=== PATIENT | female | born 1940 ===

== ENCOUNTER → 2019-04-04 | Outpatient (CLI) | payer MEDICARE ==
--- NOTE | 2019-04-04 18:33 | MR ---
EXAMINATION TYPE: MR tspine/lspine wo/w con DATE OF EXAM: 04/04/2019 COMPARISON: HISTORY: Mid/lower back pain with radiculopathy CONTRAST: Performed utilizing 7 mL intravenous Gadavist gadolinium contrast. TECHNIQUE: Multiplanar, multiecho imaging on a 3.0 Annie magnet is performed through the thoracic spi ne. Note is made of some disc bulging C6-7. This comes in close approximation with the spinal cord. This is not evaluated in the axial plane. Spinal cord maintains normal signal through its visualized course. Vertebral body alignment is normal. Vertebral body heights are preserved. Disc heights are preserved. Some mild disc desiccation is present throughout the thoracic spine. T12-L1: There is mild disc bulging with mild anterior thecal sac impression. No apical spinal canal s tenosis or neural foraminal stenosis present. No abnormal enhancement are evident. IMPRESSIONS: 1. Disc bulging T12-L1 with mild anterior thecal sac compression. 2. Incidental note is made of disc bulging C7-T1 in the sagittal plane images. EXAMINATION TYPE: MR tspine/lspine wo/w con DATE OF EXAM: 04/04/2019 COMPARISON: HISTORY: Mid/lower back pain with radiculopathy CONTRAST: 7 mL intravenous Gadavist. TECHNIQUE: Multiplanar, multisequence images of the lumbar spine were acquired. FINDINGS: L5-S1: Mild disc bulge is present. No significant thecal sac compression is evident. Facet hypertroph y is present, no spinal canal stenosis is present. Moderate facet hypertrophy and severe bilateral fo raminal narrowing is present. L4-L5: There is a grade 1 spondylolisthesis L4 anterior on L5. Disc uncovering is present. No AP spin al canal stenosis present. Facet hypertrophy is present with some posterior lateral thecal sac contac t. Mild lateral canal narrowing should be considered. Correlate with right L5 radicular symptoms at t he lateral recess. There is severe right foraminal stenosis. Mild left foraminal narrowing is present L3-L4: There is a grade 1 spondylolisthesis with disc uncovering. No spinal canal stenosis present. F acet hypertrophy is present with some posterior lateral thecal sac compression. Neural foramen are pa tent. L2-L3: No significant disc bulge or disc herniation. No spinal canal stenosis. No foraminal stenosi s. Facet hypertrophy is present. L1-L2: No significant disc bulge or disc herniation. No spinal canal stenosis. No foraminal stenosi s. T12-L1: No significant disc bulge or disc herniation. No spinal canal stenosis. No foraminal stenos is. No abnormal enhancement. IMPRESSION: 1. Spondylolisthesis of L4 on L5 and L3 on L4. 2. Severe right foraminal stenosis due to facet hypertrophy and disc uncovering at L4-5. Right latera l recess narrowing is present. 3. Severe bilateral foraminal narrowing due to facet hypertrophy at L5-S1 is present.
== END | disposition home or self-care (01) ==
LOC: RADMRIMAIN 14:20
PROVIDERS: ATTEND Psychiatry & Neurology Neurology
DX: M48.061 Spinal stenosis, lumbar region without neurogenic claudication (principal); M51.25 Other intervertebral disc displacement, thoracolumbar region; M46.97 Unspecified inflammatory spondylopathy, lumbosacral region; M43.16 Spondylolisthesis, lumbar region; M54.12 Radiculopathy, cervical region; G95.29 Other cord compression
CPT/HCPCS: 72157; 72158; A9585

== ENCOUNTER 2020-05-07 20:57 | Inpatient (IN) | payer MEDICARE ==
[2020-05-07] MEDS ORDERED: LIDOCAINE 1% INJ 10MG/ML (20 ML MDV) ONE (21:13)
[2020-05-07] MEDS ORDERED: fentaNYL (PF) 50 MCG/ML 2 ML AMP ONE (21:54)
[2020-05-07] MEDS ORDERED: LIDOCAINE 1% INJ 10MG/ML (20 ML MDV) SQ ONE (22:10)
[2020-05-07] MEDS ORDERED: MIDAZOLAM 2 MG/2 ML VIAL IV ONE (22:10)
[2020-05-07] MEDS ORDERED: fentaNYL (PF) 50 MCG/ML 2 ML AMP IV ONE (22:10)
[2020-05-07] MEDS ORDERED: IV FLUID CONTINUATION 450 ML IV ONE (22:14)
[2020-05-07] MEDS ORDERED: TICAGRELOR 90 MG TAB ONE (22:23)
[2020-05-07] MEDS ORDERED: HEPARIN SODIUM 1,000 UN/ML (10ML VL) ONE (22:23)
[2020-05-07] MEDS: HEPARIN SODIUM 1,000 UN/ML (10ML VL) IV ONE ×2 (22:25→22:35)
[2020-05-07] MEDS ORDERED: TICAGRELOR 90 MG TAB PO ONE (22:26)
[2020-05-07] MEDS ORDERED: IOPAMIDOL-370 125ML BTL INJ ONE (22:32)
--- NOTE | 2020-05-07 22:39 | P.CARDCATH ---
Date of Procedure: 05/07/20 Preoperative Diagnosis: Unstable angina/non-STEMI Postoperative Diagnosis: Critical lesion involving the proximal RCA. Multiple lesions in the LAD Procedure(s) Performed: Left heart catheterization without left ventriculography Description of Procedure: HISTORY: This is a 79-year-old female with history of hypertension and hyperlipidemia who was admitted to [facility] with intermittent Pain and chest pain and positive troponins. In view of ongoing chest pain. Patient is advised to have cardiac catheterization. Patient and family were explained the risks and benefits of the procedure CONSENT:I have discussed the risks, benefits and alternative therapies for the above-mentioned procedure and for both sedation/analgesia as well as necessary blood product administration, if indicated, as they pertain to this patient. The patient has indicated understanding and acceptance of the risks and procedures discussed. PROCEDURE: Patient was brought to the lab in a fasting state. Patient was given some IV sedation. The right groin is infiltrated with lidocaine and right femoral artery was entered using Seldinger technique. A 6-[place]ank[place] catheter was left in place and selective coronary arteriography was performed. Patient tolerated the procedure well. No immediate complications were noted and patient went on to have stent placement of the RCA by Dr. Parker Conscious Sedation: Versed 1mg Fentanyl 25 g Duration 15minutes HEMODYNAMICS: The aortic pressure is about 165/90. The left ventricle end- diastolic pressure was not measured SELECTIVE CORONARY ARTERIOGRAPHY: LEFT MAIN: Normal length and patent THE LEFT ANTERIOR DESCENDING CORONARY ARTERY:. This is a good caliber vessel with a diffuse disease involving the proximal to mid segments with multiple areas of 80% stenosis. There is a lesion and proximally and also in the midportion of 80%. There is involvement of the first diagonal ostium and also septal branch ostium THE LEFT CIRCUMFLEX AND IS CORONARY ARTERY: Good caliber vessel and codominant seemed to be free of any significant occlusive disease THE RIGHT CORONARY ARTERY:. Moderate caliber vessel with about 95-99% stenosis proximally LEFT VENTRICULOGRAPHY: Not performed FINAL IMPRESSION:. Significant coronary artery disease with critical lesions involving the proximal RCA and multiple lesions involving the proximal to mid LAD PLAN: Stent placement of the RCA. Stasis stent placement of the LAD PROGNOSIS: Guarded
[2020-05-07] MEDS ORDERED: IOPAMIDOL-370 100ML BTL INJ ONE (22:47)
[2020-05-07] MEDS ORDERED: MAG HYDROX/AL HYDROX/SIMETH 30 ML CUP PO PRN (22:56)
[2020-05-07] MEDS ORDERED: ZOLPIDEM 5 MG TAB PO PRN (22:56)
[2020-05-07] MEDS ORDERED: NITROGLYCERIN SL TABS 0.4 MG TAB SUBLINGUAL PRN (22:56)
[2020-05-07] MEDS ORDERED: ATROPINE SULFATE 0.1 MG/ML 10ML SYRINGE IV PRN (22:56)
[2020-05-07] MEDS ORDERED: RX INFO: IV CONTRAST WAS GIVEN 1 EACH MISC MISCELLANE PRN (22:56)
--- NOTE | 2020-05-07 22:56 | P.PRCINT ---
Percutaneous Coronary Int. - Percutaneous Coronary Intervention Percutaneous Coronary Intervention: PROCEDURES PERFORMED: Selective right coronary angiography, successful PCI of proximal RCA with a 2.25 x 15 mm Xience MARK, postdilated with a 2.5 mm noncompliant balloon. INDICATION: Non-STEMI HISTORY: Patient is a pleasant 79-year-old female with history of hypertension and breast cancer who presented with jaw pain to [facility]. She was found to have non-STEMI with persistent chest pain and therefore was brought urgently to the [facility]. Patient had a diagnostic catheterization performed by my partner and I was asked to evaluate for possible PCI. PROCEDURE: After the risks, benefits and alternatives of the above mentioned procedure explained in detail with the patient, informed consent was obtained. The decision was made to intervene on the RCA. A 6Fr sheath had been placed in the right femoral artery using modified Seldinger technique. A 6Fr AL1.0 guide catheter was used to engage the RCA. A 0.014 BMW wire was advanced into the distal vessel without difficulty. The lesion was predilated with a 2.0 x 12 mm balloon. Next, a 2.25 x 15 mm Xience MARK was deployed. The stent was then post dilated with a 2.5 x 12 mm NC balloon. Preintervention there was a 90 % stenosis and BARBARA 3 flow and post intervention there was 0 % residual stenosis and BARBARA 3 flow without evidence of dissection. The wire was removed and final angiograms were taken. A right femoral angiogram was performed which showed inadequate anatomy for closure. The sheath was sutured in place for removal at a later time. The patient tolerated the procedure well. Patient was transported back to the post catheterization holding area in stable condition. Conscious Sedation: Patient was monitored under the direct supervision of vision of myself for conscious sedation using Versed and fentanyl for a total duration of 26 minutes HEMODYNAMICS: 152/82 SELECTIVE CORONARY ARTERIOGRAPHY: LEFT MAIN: Not imaged, see diagnostic report LEFT ANTERIOR DESCENDING CORONARY ARTERY: Not imaged, see diagnostic report LEFT CIRCUMFLEX CORONARY ARTERY: Not imaged, see diagnostic report RIGHT CORONARY ARTERY: The right coronary artery is a small to moderate caliber vessel which is co-dominant vessel. There is a proximal 90% RCA stenosis. FINAL IMPRESSION: 1. Coronary artery disease as described above with successful PCI of the proximal RCA with a 2.25 x 15 mm Xience MARK, postdilated with a 2.5 mm noncompliant balloon. 2. Residual LAD and diagonal disease as described in diagnostic catheterization report. 3. Non-STEMI PLAN: 1. Aggressive risk factor modification per most recent ACC/AHA guidelines. 2. Consider staging of LAD lesion. 3. Continue dual antiplatelets for 12 months.
[2020-05-07 23:18] LABS: Glucose,Whole Blood 102 mg/dL (75-99)
[2020-05-07] MEDS: SODIUM CHLORIDE 0.9% 1,000 ML IV SCH (23:54)
[2020-05-08] MEDS ORDERED: ALPRAZolam 0.25 MG TAB PO PRN (02:55)
[2020-05-08] MEDS: ASPIRIN 81 MG PO SCH (08:58)
[2020-05-08] MEDS: LOSARTAN 50 MG TAB PO SCH (08:58)
[2020-05-08] MEDS: ATORVASTATIN 40 MG TAB PO SCH ×2 (08:58→09:00)
[2020-05-08] MEDS ORDERED: METOPROLOL TARTRATE 25 MG TAB PO SCH (09:00)
--- NOTE | 2020-05-08 09:47 | P.HPIM ---
History of Present Illness H&P Date: 05/08/20 Chief Complaint: Acute non-ST [place], post PCI and stent of the RCA, hypertension, hyperlipidemi 79-year-old female with past medical history of hypertension and hyperlipidemia who is survival of bilateral breast cancer post lumpectomy radiation and chemotherapy who has been doing well developed to have midsternal chest pain started midday yesterday was associated with significant shortness of breath nausea mild palpitation cold sweat her pain radiated to her jaw and left arm symptoms become a lot worse with exertion. Patient was not able to complete her tasks at noontime been able to do much with her house chore her end up taking her to the emergency department at [facility] where was seen and evaluated was diagnosed with non-ST FL with elevated troponin and slightly abnormal EKG. Patient was seen cardiology and ended up being transferred to the quality control lab technician at [facility] were end up performing emergency heart catheter which showed significant stenosis of the right coronary artery and mild stenosis of the LAD. Patient ended up having an intervention with angioplasty and stent placement of the right coronary artery successful. Patient was stabilized hemodynamically and transferred to the intensive care unit afterward no bleeding from the groin area no further chest pain or more angina. Review of Systems CONSTITUTIONAL: Well-developed no acute respiratory distress. EYES: No icterus sclerae, no conjunctivitis. EARS, NOSE, MOUTH, THROAT, and FACE: No sore throat, lymphadenopathy, carotid bruits or deformity. RESPIRATORY: Mild shortness of breath and chest pain. CARDIOVASCULAR: Positive chest pain with angina and mild orthopnea. GASTROINTESTINAL: No Abd pain, Nausea or vomiting, no Diarrhea or constipation, No GI Bleed, no distention or masses. GENITOURINARY: Negative for Hematuria or UTI, no kidney stones. INTEGUMENT/BREAST: Negative for any muscular injury with mild osteoarthritis.. HEMATOLOGIC/LYMPHATIC: Negative for bleed or purpura. MUSCULOSKELTAL: Negative for Myalgia or arthralgia. NEURLOGICAL: No LOC, Sz or syncope, blurred vision dizziness or abnormality.. BEHAVIORAL/PSYCH: Negative. ENDOCRINE: Negative. Social history: Patient does not smoke, no alcohol abuse, she is retired live with her no use of oxygen CPAP or any updraft treatment at home. Family history: Patient had 2 children both are living and well, she had 3 siblings with no major medical problem. Her father age 62 from [place], mother age 75 from stomach cancer. Medications and Allergies Home Medications Medication Instructions Recorded Confirmed Type Labetalol [Trandate] 50 mg PO HS 05/07/20 05/07/20 History Labetalol [Trandate] 100 mg PO DAILY 05/07/20 05/07/20 History Olmesartan [Benicar] 20 mg PO DAILY 05/07/20 05/07/20 History Potassium Chloride 10 meq PO DAILY 05/07/20 05/07/20 History amLODIPine [Norvasc] 5 mg PO HS 05/07/20 05/07/20 History hydroCHLOROthiazide [Hydrodiuril] 25 mg PO DAILY 05/07/20 05/07/20 History Allergies Allergy/AdvReac Type Severity Reaction Status Date / Time meperidine [From Demerol] Allergy Unknown Unknown Verified 05/07/20 23:30 morphine Allergy Unknown Unknown Verified 05/07/20 23:30 Physical Exam Vitals: Vital Signs Temp Pulse Resp BP Pulse Ox 05/08/20 09:00 69 15 147/92 96 05/08/20 08:00 97.8 F 64 18 151/83 97 05/08/20 07:00 78 13 135/89 97 05/08/20 06:30 72 10 L 135/89 05/08/20 06:00 73 16 141/84 05/08/20 05:30 68 14 140/76 05/08/20 05:00 73 22 141/94 98 05/08/20 04:30 70 11 L 157/79 05/08/20 04:00 97.6 F 74 18 156/70 05/08/20 03:40 71 18 156/70 05/08/20 03:30 77 12 05/08/20 03:20 73 22 05/08/20 03:10 80 10 L 05/08/20 03:00 92 26 H 165/95 05/08/20 02:50 79 17 97 05/08/20 02:40 71 12 96 05/08/20 02:30 74 10 L 170/87 05/08/20 02:20 77 16 170/87 95 05/08/20 02:10 78 17 170/87 96 05/08/20 02:00 71 18 163/93 97 05/08/20 01:50 69 10 L 163/93 98 05/08/20 01:40 82 17 163/93 96 05/08/20 01:30 70 8 L 153/89 96 05/08/20 01:20 73 12 153/89 96 05/08/20 01:10 72 13 153/89 98 05/08/20 01:00 72 12 144/87 97 05/08/20 00:50 68 11 L 144/87 97 05/08/20 00:40 71 12 144/87 96 05/08/20 00:30 64 12 152/85 96 05/08/20 00:20 71 11 L 152/85 96 05/08/20 00:19 76 20 152/85 95 05/08/20 00:10 72 5 L 152/85 93 L 05/08/20 00:00 98.2 F 70 13 167/95 93 L 05/07/20 23:50 70 13 167/95 94 L 05/07/20 23:40 76 12 167/95 93 L 05/07/20 23:30 70 15 154/90 94 L 05/07/20 23:20 73 14 154/90 96 05/07/20 23:15 71 11 L Intake and Output 05/07/20 05/08/20 05/08/20 22:59 06:59 14:59 Intake Total 100 625 325 Output Total 1150 400 Balance 100 -525 -75 Intake: IV 100 525 225 Sodium Chloride 0.9% 1, 525 225 000 ml @ 75 mls/hr IV . [id number] [facility] Rx#:[id number] Oral 100 100 Output: Urine 1150 400 Other: # Voids 0 1 Weight 70.632 kg 75.7 kg ABP, PAP, CO, CI - Last 8 Hours Arterial Blood Pressure 186/87 Arterial Blood Pressure 173/79 Arterial Blood Pressure 175/83 Arterial Blood Pressure 166/73 Arterial Blood Pressure 170/76 Arterial Blood Pressure 179/83 Arterial Blood Pressure 189/89 Arterial Blood Pressure 192/88 Arterial Blood Pressure 203/97 Arterial Blood Pressure 196/88 Arterial Blood Pressure 209/99 Arterial Blood Pressure 199/88 Arterial Blood Pressure 203/95 Arterial Blood Pressure 203/94 Arterial Blood Pressure 205/93 Arterial Blood Pressure 199/94 Arterial Blood Pressure 188/85 Arterial Blood Pressure 202/94 General Appearance: Alert, cooperative, no distress, appears stated age. Neck HEENT: Supple, no lymphadenopathy, no thyroid enlargement, no carotid bruits. Lungs: Clear to auscultation without crackles or wheezes no rhonchi, no deformity. Chest Wall: Chest wall normal expansion with deep inspiration no tenderness and no deformity was found on exam, no costochondral pain or discomfort. Heart: Regular rate and rhythm, S1, S2 normal, no murmur, rub or gallop. Back: Symmetric, no curvature, ROM normal, no CVA tenderness. Abdomen: Soft, non-tender, bowel sounds active all four quadrants, no masses, no organomegaly. Right groin no sign of bleeding from the catheter site. Extremities: Extremities normal, atraumatic, no cyanosis or edema. Pulses: 2+ and symmetric. Skin: Skin color, texture, tugor normal, no rashes or lesions. Neurologic: Alert oriented x3 cranial nerves II through XII intact, no motor deficit, no abnormal balance or gait. Results Labs: Abnormal Lab Results - Last 24 Hours (Table) 05/07/20 Range/Units 23:17 POC Glucose (mg/dL) 102 H (75-99) mg/dL Thrombosis Risk Factor Assmnt - DVT/VTE Prophylaxis DVT/VTE Prophylaxis: Pharmacologic Prophylaxis ordered, Mechanical Prophylaxis ordered Assessment and Plan Assessment: 1 non-ST [place]: Patient ended up going for intervention with angioplasty and stent placement of the right coronary artery, will be started on higher dose of statin, beta rigoberto, COLUMBA inhibitor and Brilinta. 2 post PCI and stent placement of the right coronary artery: Patient is doing well continue current management seen cardiology still been watch hemodynamically. 3 emergency hypertension: Blood pressure still quite bit elevated continue patient on Lopressor 25 mg twice a day along with Cozaar 50 mg daily titrate the dose and add calcium channel rigoberto patient was in much higher beta rigoberto at home with labetalol 100 mg in the morning 50 at nighttime beta rigoberto can be titrated try to keep her systolic blood pressure below 140. 4 hyperlipidemia: Was started on higher dose of atorvastatin at 40 mg daily. 5 hyperglycemia: Accu-Chek with sliding scales coverage and be done. 6 severe GERD: Was on Pepcid 20 mg daily patient will be on pantoprazole at this point. 7 history of bilateral breast cancer: Has been doing well and in full remission. 8 GI prophylaxis: Patient will be on pantoprazole. 9 DVT prophylaxis: Early mobilization and knee-high ANNEL hose. CODE STATUS: Full code. Admit patient to inpatient service for more than 2 night stay.
--- NOTE | 2020-05-08 10:13 | ECHOF ---
Referral Reason:mi MEASUREMENTS -------- HEIGHT: 152.4 cm WEIGHT: 75.3 kg BP: RVIDd: 3.2 cm (< 3.3) IVSd: 1.4 cm (0.6 - 1.1) LVIDd: 4.4 cm (3.9 - 5.3) LVPWd: 1.3 cm (0.6 - 1.1) IVSs: 1.9 cm LVIDs: 3.5 cm LVPWs: 1.2 cm LAESV Index (A-L): 26.18 ml/m MV EXCURSION: 13.189 mm (> 18.000) MV EF SLOPE: 30 mm/s (70 - 150) EPSS: 1.4 cm MV E Kade: 0.32 m/s MV DecT: 272 ms MV A Kade: 0.81 m/s MV E/A Ratio: 0.40 AR PHT: 617 ms RAP: 5.00 mmHg RVSP: 25.42 mmHg FINDINGS -------- This was a techncally difficult study with suboptimal views, , Lumason utilized for enhancement of im ages. The left ventricular size is normal. There is mild concentric left ventricular hypertrophy. Overa ll left ventricular systolic function is mild-moderately impaired with, an EF between 40 - 45 %. Ap ical septum LV wall motion is hypokinetic. Inferior Hypokinesis The right ventricle is normal in size. The left atrial size is normal. Normal LA size by volume 22+/-6 ml/m2. The right atrial size is normal. 5.0mg OF Lumason UTLIZED: 2 OR MORE WALL SEGMENTS NOT VISUALIZED. There is mild aortic valve sclerosis. There is no evidence of aortic regurgitation. Mild mitral regurgitation is present. Mild tricuspid regurgitation present. Right ventricular systolic pressure is normal at < 35 mmHg. There is no pulmonic regurgitation present. The aortic root size is normal. There is no pericardial effusion. CONCLUSIONS -------- 1. This was a techncally difficult study with suboptimal views, , Lumason utilized for enhancement of images. 2. The left ventricular size is normal. 3. There is mild concentric left ventricular hypertrophy. 4. Overall left ventricular systolic function is mild-moderately impaired with, an EF between 40 - 45 %. 5. Apical septum LV wall motion is hypokinetic. 6. Inferior Hypokinesis 7. The right ventricle is normal in size. 8. The left atrial size is normal. 9. Normal LA size by volume 22+/-6 ml/m2. 10. The right atrial size is normal. 11. 5.0mg OF Lumason UTLIZED: 2 OR MORE WALL SEGMENTS NOT VISUALIZED. 12. There is mild aortic valve sclerosis. 13. Mild mitral regurgitation is present. 14. Mild tricuspid regurgitation present. 15. There is no pulmonic regurgitation present. 16. There is no pericardial effusion. AUTOMATIC MOUNTER: Polina Whelan RDCS
[2020-05-08 11:15] LABS: HCT 40.3 % (34.0-46.0); HGB 13.1 gm/dL (11.4-16.0); MCH 31.4 pg (25.0-35.0); MCHC 32.4 g/dL (31.0-37.0); Mean Platelet Volume 6.3; Platelet Count 287 k/uL (150-450); RBC 4.16 m/uL (3.80-5.40); RDW 13.3 % (11.5-15.5); WBC 8.5 k/uL (3.8-10.6)
[2020-05-08 11:18] LABS: Calcium 9.2 mg/dL (8.4-10.2)
--- NOTE | 2020-05-08 11:26 | PN ---
PROGRESS NOTE Mrs. Duenas is a 79-year-old female with known history of hypertension who presented to [facility] with evidence of non ST-segment elevation myocardial infarction. She continued to have chest discomfort, underwent cardiac catheterization yesterday by Dr. Parish and was found to have critical stenosis in the proximal right coronary artery with diffuse significant disease in the LAD, underwent stenting of the right coronary artery. She is doing well this morning. She has no further symptoms of chest pain. Her breathing is stable. She denies any dizziness or palpitation. She denies any nausea. She continues to be on aspirin once a day, metoprolol tartrate 25 mg twice a day, Brilinta 90 mg twice a day. PHYSICAL EXAMINATION: Blood pressure running in the 160s-170s with a heart rate in 70s. LUNGS: Clear anteriorly. Heart regular rate and rhythm. S1, S2. No S3 with a systolic murmur. No diastolic murmur. No rub. ABDOMEN: Soft, nontender. EXTREMITIES is no edema. Femoral sheath in place. IMPRESSION: 1. Status post non ST-segment elevation myocardial infarction with stenting of the right coronary artery. 2. Significant disease in the left anterior descending coronary artery. 3. Hypertension. RECOMMENDATIONS: An echocardiogram with Doppler will be obtained today. We will add to her regimen a statin. The sheath will be removed. The patient will be evaluated regarding the need to undergo percutaneous revascularization of her LAD at a later time. Depending on her progress, further recommendations will be made. In the meantime, we will continue on the antiplatelet treatment. I will add to her regimen an ARB for improvement of her blood pressure control. MMODL / IJN: [id number] /
[2020-05-08 11:51] VITALS: BMI 32.5
[2020-05-08] MEDS: TICAGRELOR 90 MG TAB PO SCH ×2 (12:14→20:25)
[2020-05-08] MEDS: SODIUM CHLORIDE 0.9% 1,000 ML IV SCH (12:15)
[2020-05-08] MEDS: METOPROLOL TARTRATE 50 MG TAB PO SCH (20:26)
[2020-05-08] MEDS ORDERED: amLODIPine 5 MG TAB PO SCH (21:00)
[2020-05-09 01:19] LABS: HCT 39.7 % (34.0-46.0); HGB 12.9 gm/dL (11.4-16.0); MCH 31.1 pg (25.0-35.0); MCHC 32.4 g/dL (31.0-37.0); MCV 95.7 fL (80.0-100.0); Mean Platelet Volume 6.6; Platelet Count 292 k/uL (150-450); RBC 4.14 m/uL (3.80-5.40); RDW 13.1 % (11.5-15.5); WBC 8.3 k/uL (3.8-10.6)
[2020-05-09 01:28] LABS: Prothrombin Time 10.2 sec (9.0-12.0)
[2020-05-09] MEDS: SODIUM CHLORIDE 0.9% 1,000 ML IV SCH (01:44)
[2020-05-09 04:49] LABS: HCT 39.4 % (34.0-46.0); HGB 12.9 gm/dL (11.4-16.0); MCH 31.2 pg (25.0-35.0); MCHC 32.9 g/dL (31.0-37.0); MCV 94.8 fL (80.0-100.0); Mean Platelet Volume 6.4; Platelet Count 295 k/uL (150-450); RBC 4.15 m/uL (3.80-5.40); RDW 13.4 % (11.5-15.5); WBC 8.7 k/uL (3.8-10.6)
[2020-05-09 05:04] LABS: African American GFR (CKD) >90 (>60 ml/min/1.73 sqM); Anion Gap 7 mmol/L; Blood Urea Nitrogen 15 mg/dL (7-17); Carbon Dioxide 24 mmol/L (22-30); Chloride 107 mmol/L (98-107); Glucose 109 mg/dL (74-99); Non-African American GFR(CKD) 85 (>60 ml/min/1.73 sqM); Potassium 3.4 mmol/L (3.5-5.1); Sodium 138 mmol/L (137-145)
[2020-05-09] MEDS: POTASSIUM CHLORIDE ER 20 MEQ TAB.ER PO SCH ×2 (06:59→08:53)
[2020-05-09] MEDS ORDERED: PANTOPRAZOLE 40 MG TABLET PO SCH (07:30)
[2020-05-09 08:52] VITALS: TEMP 97.9
[2020-05-09] MEDS: LOSARTAN 50 MG TAB PO SCH (08:52)
[2020-05-09] MEDS: ASPIRIN 81 MG PO SCH (08:52)
[2020-05-09] MEDS: METOPROLOL TARTRATE 50 MG TAB PO SCH (08:53)
[2020-05-09] MEDS: ATORVASTATIN 40 MG TAB PO SCH (08:53)
[2020-05-09] MEDS: TICAGRELOR 90 MG TAB PO SCH (08:53)
--- NOTE | 2020-05-09 09:58 | P.DS ---
Providers Date of admission: 05/07/20 21:47 Attending physician: Bethany Parish Consults: 05/07/20 22:56 Consult Physician Routine Consulting Provider: [facility] Consult Reason/Comments: Post Interventional patient Do you want consulting provider notified?: Already Contacted Primary care physician: Francia Ugarte MD Hospital Course: 79-year-old female with past medical history of hypertension and hyperlipidemia who is survival of bilateral breast cancer post lumpectomy radiation and chemotherapy who has been doing well developed to have midsternal chest pain started midday yesterday was associated with significant shortness of breath nausea mild palpitation cold sweat her pain radiated to her jaw and left arm symptoms become a lot worse with exertion. Patient was not able to complete her tasks at noontime been able to do much with her house chore her end up taking her to the emergency department at [facility] where was seen and evaluated was diagnosed with non-ST SC with elevated troponin and slightly abnormal EKG. Patient was seen cardiology and ended up being transferred to the nursery laborer at [facility] were end up performing emergency heart catheter which showed significant stenosis of the right coronary artery and mild stenosis of the LAD. Patient ended up having an intervention with angioplasty and stent placement of the right coronary artery successful. Patient was stabilized hemodynamically and transferred to the intensive care unit afterward no bleeding from the groin area no further chest pain or more angina. 05/09: Patient is status post PCI to the [facility] day 1. Patient is found sitting up in chair with no acute distress. Patient is refusing Lipitor at this time due to abdominal discomfort upon taking. Patient is agreeable to take Crestor prescription was sent to her pharmacy. Patient will continue on Brilinta. She follows up with Dr. Arrieta/Kailee Osman. Discussed with patient the importance of continuing medications and her medication regime. Patient is able to go home today. Questions were answered. Discharge diagnosis: 1 non-ST SC: 2 post PCI and stent placement of the right coronary artery: 3 emergency hypertension: 4 hyperlipidemia: 5 hyperglycemia: 6 severe GERD: 7 history of bilateral breast cancer: Discharge disposition: Home with self-care Impression and plan of care have been directed as dictated by the signing physician. Dagmar Rogers nurse practitioner acting as scribe for signing physician. Plan - Discharge Summary Discharge Rx Participant: No New Discharge Prescriptions: New Rosuvastatin [Crestor] 20 mg PO DAILY #30 tablet Aspirin 81 mg PO DAILY chew Ticagrelor [Brilinta] 90 mg PO BID #60 tab Losartan [Cozaar] 50 mg PO DAILY #30 tab Metoprolol Tartrate [Lopressor] 50 mg PO BID #60 tab Nitroglycerin Sl Tabs [Nitrostat] 0.4 mg SUBLINGUAL Q5M PRN #100 tab PRN Reason: Chest Pain Continue hydroCHLOROthiazide [Hydrodiuril] 25 mg PO DAILY amLODIPine [Norvasc] 5 mg PO HS Labetalol [Trandate] 100 mg PO DAILY Labetalol [Trandate] 50 mg PO HS Olmesartan [Benicar] 20 mg PO DAILY Potassium Chloride 10 meq PO DAILY Discharge Medication List Labetalol [Trandate] 50 mg PO HS 05/07/20 [History] Labetalol [Trandate] 100 mg PO DAILY 05/07/20 [History] Olmesartan [Benicar] 20 mg PO DAILY 05/07/20 [History] Potassium Chloride 10 meq PO DAILY 05/07/20 [History] amLODIPine [Norvasc] 5 mg PO HS 05/07/20 [History] hydroCHLOROthiazide [Hydrodiuril] 25 mg PO DAILY 05/07/20 [History] Aspirin 81 mg PO DAILY chew 05/09/20 [Rx] Losartan [Cozaar] 50 mg PO DAILY #30 tab 05/09/20 [Rx] Metoprolol Tartrate [Lopressor] 50 mg PO BID #60 tab 05/09/20 [Rx] Nitroglycerin Sl Tabs [Nitrostat] 0.4 mg SUBLINGUAL Q5M PRN #100 tab 05/09/20 [Rx] Rosuvastatin [Crestor] 20 mg PO DAILY #30 tablet 05/09/20 [Rx] Ticagrelor [Brilinta] 90 mg PO BID #60 tab 05/09/20 [Rx]
[2020-05-09 10:26] VITALS: PULSE 73; RESP 20
[2020-05-09 11:30] VITALS: BP 134/82
--- NOTE | 2020-05-09 11:37 | PN ---
PROGRESS NOTE Mrs. Duenas is a 79 -year-old female with known history of hyperlipidemia, who presented with non ST-segment elevation myocardial infarction, underwent cardiac catheterization and stenting of the RCA. She was found to have disease in the LAD. She is feeling well this morning. Her breathing is stable. She denies any dizziness or palpitation. She denies any nausea. Her echocardiogram revealed inferior wall hypokinesis. Ejection fraction 40-45 percent. She is in sinus mechanism. She continues to be on amlodipine 5 mg daily, aspirin once a day, Lipitor 40 mg daily, metoprolol tartrate 50 mg twice a day, Brilinta 90 mg twice a day and losartan 50 mg daily. PHYSICAL EXAMINATION: Blood pressure 146/90 with a heart rate in 70s. LUNGS: Clear. HEART: Regular rate and rhythm S1, S2. No S3. No rub. ABDOMEN: Soft, nontender. EXTREMITIES: No edema. IMPRESSION: 1. Status post non ST-segment elevation myocardial infarction and stenting of the RCA. 2. Obstructive disease in the LAD. 3. Hyperlipidemia. 4. Hypertension. RECOMMENDATIONS: She should be able to be discharged home today and follow up as an outpatient with Dr. Osman to undergo evaluation of her LAD territory. MMODL / IJN: [id number] /
== END 2020-05-09 11:35 | disposition home or self-care (01) | DRG 247 ==
LOC: 3SCARD 21:47 → 2SICU 22:24
PROVIDERS: ADMIT Internal Medicine Cardiovascular Disease; ATTEND Internal Medicine Cardiovascular Disease
PROC: 027034Z Dilation of Coronary Artery, One Artery with Drug-eluting Intraluminal Device, Percutaneous Approach (ICD-10-PCS; principal; 2020-05-07 21:30)
PROC: B2111ZZ Fluoroscopy of Multiple Coronary Arteries using Low Osmolar Contrast (ICD-10-PCS; 2020-05-07 21:30)
PROC: 4A023N7 Measurement of Cardiac Sampling and Pressure, Left Heart, Percutaneous Approach (ICD-10-PCS; 2020-05-07 21:30)
DX: I21.4 Non-ST elevation (NSTEMI) myocardial infarction (principal); I16.1 Hypertensive emergency; I25.10 Atherosclerotic heart disease of native coronary artery without angina pectoris; I10 Essential (primary) hypertension; E78.5 Hyperlipidemia, unspecified; K21.9 Gastro-esophageal reflux disease without esophagitis; R73.9 Hyperglycemia, unspecified; I25.82 Chronic total occlusion of coronary artery; Z80.0 Family history of malignant neoplasm of digestive organs; Z82.49 Family history of ischemic heart disease and other diseases of the circulatory system; Z79.02 Long term (current) use of antithrombotics/antiplatelets; Z79.899 Other long term (current) drug therapy; Z88.5 Allergy status to narcotic agent; Z88.8 Allergy status to other drugs, medicaments and biological substances; Z85.3 Personal history of malignant neoplasm of breast
CPT/HCPCS: 80048; 80061; 85027; 85610; 93306; 93454

== ENCOUNTER → 2020-05-15 | Outpatient (CLI) | payer MEDICARE ==
[2020-05-15 15:36] LABS: HCT 40.1 % (34.0-46.0); HGB 13.4 gm/dL (11.4-16.0); MCH 33.3 pg (25.0-35.0); MCHC 33.5 g/dL (31.0-37.0); MCV 99.4 fL (80.0-100.0); Mean Platelet Volume 6.4; Platelet Count 303 k/uL (150-450); RBC 4.03 m/uL (3.80-5.40); RDW 12.9 % (11.5-15.5); WBC 8.5 k/uL (3.8-10.6)
[2020-05-16 03:28] LABS: African American GFR (CKD) 71.5 (60.0-200.0); Anion Gap 12.2 mmol/L (4.00-12.00); Carbon Dioxide 28.8 mmol/L (21.6-31.8); Non-African American GFR(CKD) 61.7 (60.0-200.0); Potassium 3.6 mmol/L (3.5-5.5)
== END | disposition home or self-care (01) ==
LOC: LABWHC1 15:10
PROVIDERS: ATTEND Internal Medicine Interventional Cardiology
DX: Z01.818 Encounter for other preprocedural examination (principal); I25.10 Atherosclerotic heart disease of native coronary artery without angina pectoris
CPT/HCPCS: 36415; 80051; 82565; 84520; 85027

== ENCOUNTER 2020-05-19 06:47 | Day surgery (SDC) | payer MEDICARE ==
[2020-05-18 11:13] VITALS: BMI 32.4
[~2020-05-19 06:47] MED LIST: ALPRAZolam 0.25 MG TAB PO PRN; ALPRAZolam 0.5 MG TAB PO PRN; NITROGLYCERIN SL TABS 0.4 MG TAB SUBLINGUAL PRN; SODIUM CHLORIDE 0.9% 1,000 ML in EMPTY BAG 1 BAG IV ONE
[2020-05-19] MEDS ORDERED: SODIUM CHLORIDE 0.9% 1,000 ML IV ONE (06:58)
[2020-05-19] MEDS ORDERED: ASPIRIN 325 MG TAB PO ONE (07:00)
[2020-05-19] MEDS ORDERED: LIDOCAINE 1% INJ 10MG/ML (20 ML MDV) ONE (07:30)
[2020-05-19] MEDS ORDERED: MIDAZOLAM 2 MG/2 ML VIAL IVP ONE (07:38)
[2020-05-19] MEDS ORDERED: LIDOCAINE 1% INJ 10MG/ML (20 ML MDV) SQ ONE (07:38)
[2020-05-19] MEDS ORDERED: fentaNYL (PF) 50 MCG/ML 2 ML AMP IVP ONE (07:40)
[2020-05-19] MEDS ORDERED: fentaNYL (PF) 50 MCG/ML 2 ML AMP ONE (07:46)
[2020-05-19] MEDS ORDERED: HEPARIN SODIUM 1,000 UN/ML (10ML VL) ONE (07:49)
[2020-05-19] MEDS ORDERED: HEPARIN SODIUM 1,000 UN/ML (10ML VL) IV ONE ×2 (07:57→09:10)
[2020-05-19] MEDS ORDERED: IOPAMIDOL-370 100ML BTL INJ ONE ×2 (08:34→09:25)
[2020-05-19] MEDS ORDERED: TICAGRELOR 90 MG TAB ONE (09:18)
[2020-05-19] MEDS ORDERED: TICAGRELOR 90 MG TAB PO ONE (09:25)
--- NOTE | 2020-05-19 11:48 | CC ---
CARDIAC CATHETERIZATION REPORT DATE OF SERVICE: 05/19/2020. PROCEDURE: 1. Selective coronary angiography of the right coronary artery. 2. PTCA of the major diagonal branch with a noncompliant balloon. 3. Orbital atherectomy of a long calcified segment in the proximal and mid LAD. 4. PTCA and stenting of proximal and mid LAD with 3 drug-eluting stents. PERFORMED BY: Dr. Herminia Osman. Moderate conscious sedation time was 95 minutes. Patient was administered fentanyl and Versed. Oxygen saturation, hemodynamics and EKG were monitored closely. CLINICAL INFORMATION: Mrs. Chuck Duenas is a 79-year-old lady with a diagnosis of hypertension, cardiomyopathy secondary to previous chemotherapy for breast cancer. About 10 days ago, she presented with a non-ST elevation DC at [facility] and was transferred here for cardiac catheterization which revealed a tight proximal codominant RCA lesion that was stented. At that time she had a mid heavily calcified long lesion in the LAD and she was advised to come back for elective PCI. I saw her in the office last Monday. She was having symptoms of angina at rest and with mild to moderate effort and therefore she was advised to have a coronary angiography to check patency of RCA and then pursue intervention of the LAD. Possibility of using orbital atherectomy was explained. The patient and her Michaelrussellarissa understood all details and wished to proceed. PROCEDURE NOTE: Under local anesthesia and strict aseptic precautions, a 7-Japanese introducer was placed in the right femoral artery. I used AR1 catheter, with this I performed selective coronary angiography of the RCA and noted that the vessel was widely patent. I then turned my attention to the LAD. A 3.5 left Shonda guide catheter was used to cannulate the left coronary artery. I used a Whisper wire with a steep curve and gained access into the diagonal. I pre-dilated the ostium of the diagonal which had a tight lesion with a 2.0 caliber 8 mm NC Trek balloon at 13 atmospheres. There was a fairly decent result. I then advanced a long run-through wire and kept in the distal LAD. Using a teleport catheter, I exchanged the run-through wire for an 18 all wire for the orbital atherectomy. I then took the diagonal whisper wire out. I performed orbital atherectomy with at least 2-3 passes in the proximal as well as in the distal lesion. Distal lesion was 90% , located just proximal to the origin of the diagonal branch. After performing orbital atherectomy, I used a 2.5 caliber 20 mm NC Trek balloon and I pre-dilated the entire lesion. I then deployed a 2.5 caliber 15 mm Xience stent in the distal lesion and proximal to it, I telescoped a 23 mm long 3.0 caliber Xience stent and proximal to it at the origin of the diagonal branch which I dilated, I deployed an 8 mm long 3.25 caliber stent. The stents were deployed at 12-13 atmospheres. Patient had jaw discomfort and mild ST elevation in leads V2 to V4. Excellent angiographic result was achieved. She received 5000 units of heparin and ACT was about 320. Subsequently, it came down to 228 and I gave an additional 1000 units and it went up to 328. The patient received 90 mg of Brilinta additionally. She was already on aspirin and Brilinta combination. Excellent angiographic result without complication was achieved. Results were discussed with the patient as well as her . The sheath was sutured and she was sent to the room in a stable condition. I expect the sheath will be pulled in a couple of hours and she will be discharged tomorrow on the current medical regimen. MMODL / IJN: [id number] /
[2020-05-19] MEDS ORDERED: HYDROcodone/APAP 5-325MG 1 EACH TAB PO PRN (14:31)
[2020-05-19] MEDS: SODIUM CHLORIDE 0.9% 1,000 ML IV SCH ×2 (20:08→20:14)
[2020-05-19] MEDS: TICAGRELOR 90 MG TAB PO SCH (20:14)
[2020-05-19] MEDS ORDERED: amLODIPine 5 MG TAB PO SCH (21:00)
[2020-05-20 03:42] VITALS: TEMP 97.6
[2020-05-20] MEDS ORDERED: NITROGLYCERIN SL TABS 0.4 MG TAB SUBLINGUAL PRN (08:01)
[2020-05-20] MEDS ORDERED: hydroCHLOROthiazide 25 MG TAB PO SCH (09:00)
[2020-05-20] MEDS ORDERED: ASPIRIN 81 MG PO SCH (09:00)
[2020-05-20] MEDS ORDERED: LOSARTAN 50 MG TAB PO SCH (09:00)
[2020-05-20] MEDS ORDERED: METOPROLOL TARTRATE 12.5 MG TAB PO SCH (09:00)
[2020-05-20] MEDS ORDERED: ATORVASTATIN 40 MG TAB PO SCH (09:00)
[2020-05-20] MEDS ORDERED: POTASSIUM CHLORIDE ER 10 MEQ TAB.ER.PRT PO SCH (09:00)
[2020-05-20] MEDS ORDERED: LABETALOL 100 MG TAB PO SCH (09:00)
[2020-05-20] MEDS: TICAGRELOR 90 MG TAB PO SCH (09:05)
[2020-05-20 09:12] VITALS: BP 125/56; PULSE 89; RESP 16
--- NOTE | 2020-05-20 11:26 | DS ---
DISCHARGE SUMMARY DATE OF ADMISSION: 05/19/2020 DATE OF DISCHARGE: 05/20/2020 DIAGNOSES: 1. Unstable angina. 2. Hypertension. 3. Cardiomyopathy. 4. History of breast cancer status post chemotherapy. Mrs. Duenas was admitted electively for a coronary angiography and intervention of LAD, which was a very long lesion. About 10 days ago, she was admitted with non-ST elevation CT, underwent stenting of a proximal RCA. I performed the procedure from the right femoral approach. I checked the patency of RCA and the RCA was widely patent. I performed intervention of the LAD. I did a balloon angioplasty of the major diagonal that came off at the proximal end of the lesion. I did orbital atherectomy and deployed 3 drug-eluting stents. Excellent angiographic result was achieved without complication. Postprocedure course was uneventful. This morning labs are pending. EKG revealed sinus mechanism with T-wave inversion in the lateral leads, which is the baseline. She is asymptomatic. Right groin is clean and dry with a good pulse. Labs are pending. I will review the labs prior to discharge. She has been ambulating without symptoms. Plan is to discharge the patient on current medical regimen which includes dual antiplatelet therapy and I will see her in the office on 05/27 at 4 pm. Discharge instructions regarding activity, diet and medications were given. MMODL / IJN: [id number] /
== END 2020-05-20 10:55 | disposition home or self-care (01) ==
LOC: CATHCVL 06:47 → 3SCARD 09:11 → CATHCVL 05-20 10:55
PROVIDERS: ATTEND Internal Medicine Interventional Cardiology
DX: I25.110 Atherosclerotic heart disease of native coronary artery with unstable angina pectoris (principal); I42.9 Cardiomyopathy, unspecified; I10 Essential (primary) hypertension; I35.0 Nonrheumatic aortic (valve) stenosis; E78.2 Mixed hyperlipidemia; Z85.3 Personal history of malignant neoplasm of breast; Z92.21 Personal history of antineoplastic chemotherapy; Z79.82 Long term (current) use of aspirin; Z79.899 Other long term (current) drug therapy; Z88.5 Allergy status to narcotic agent; Z88.8 Allergy status to other drugs, medicaments and biological substances; Z98.61 Coronary angioplasty status; Z82.49 Family history of ischemic heart disease and other diseases of the circulatory system
CPT/HCPCS: 92921; 85347; C9602; C1769 ×7; C1725 ×2; C1894; C1874; J2250; J2001; J3010; J1644; Q9967

== ENCOUNTER → 2022-05-05 | Outpatient (CLI) | payer MEDICARE ==
--- NOTE | 2022-05-05 17:48 | BD ---
EXAMINATION TYPE: Axial Bone Density DATE OF EXAM: 05/05/2022 COMPARISON: NONE CLINICAL HISTORY: 81 years year old Female. ICD-10 CODE: N95.1 MENOPAUSAL AND FEMALE CLIMACTERIC STA ANT Height: 4 FT 10 IN Weight: 151 FRAX RISK QUESTIONS: Alcohol (3 or more units per day): NO Family History (Parent hip fracture): NO Glucocorticoids (More than 3mos): NO (Ex: prednisone, prednisolone, methylprednisolone, dexamethasone, and hydrocortisone). History of Fracture in Adulthood: NO Secondary Osteoporosis: 1. Type 1 Diabetes: NO 2. Hyperthyroidism: NO 3. Menopause before 45: YES 4. Malnutrition: NO 5. Chronic liver disease: NO Rheumatoid Arthritis: NO Current Tobacco Use: NO RISK FACTORS HISTORY OF: Surgery to Spine/Hip(right/left)/Wrist (right/left):NO Family History of Osteoporosis: NO Active: YES Diet low in dairy products/other sources of calcium: NO Postmenopausal woman: YES Take estrogen and/or progesterone medications: NO Lost more than 2 inches in height since high school: YES Frequent falls NO: Poor Health: GOOD Hyperparathyroidism: NO Adrenal Insufficiency: NO MEDICATIONS: Additional Medications: BLOOD PRESSURE MEDS, CHOLESTEROL MEDS, , ASPIRIN, PLAVIX Additional History: BREAST CANCER BILATERAL CHEMO AND RADIATION LUMPECTOMIES EXAM MEASUREMENTS: Bone mineral densitometry was performed using the [employer] System. Bone mineral density as measured about the Lumbar spine is: ----- L1-L4(G/cm2): 1.259 T Score Values are as follows: ----- L1: 0.0 ----- L2: -0.2 ----- L3: 2.1 ----- L4: 0.6 ----- L1-L4: 0.7 PREV RDH Bone mineral density about the R hip (g/cm2): 0.879 Bone mineral density about the L hip (g/cm2): 0.780 T Score values are as follows: -----R Neck: -1.1 -----L Neck: -1.9 -----R Total: -0.2 -----L Total: -0.6 PREV RDH FRAX%s: The graph provided illustrates a 8.7 % chance for a major osteoporotic fx and a 2.3 % chance for the hips probability for fx in 10 years time. IMPRESSION: Normal (Values between +1 and -1 indicate normal bone mass). Consider repeating this study in 5 year s or sooner if there is some new clinical indication. NOTE: T-SCORE=SD OF THE YOUNG ADULT MEAN.
== END | disposition home or self-care (01) ==
LOC: RADBDWWP 08:05
PROVIDERS: ATTEND Family Medicine
DX: N95.1 Menopausal and female climacteric states (principal); M89.9 Disorder of bone, unspecified
CPT/HCPCS: 77080

== ENCOUNTER 2024-07-03 14:43 | Inpatient (IN) | payer MEDICARE ==
[2024-07-03] MEDS: SODIUM CHLORIDE 0.9% 500 ML 500 ML IV ONE (16:46)
[2024-07-03] MEDS: SODIUM CHLORIDE 0.9% 1,000 ML in EMPTY BAG 1 BAG IV SCH ×2 (17:25→23:41)
[2024-07-03] MEDS: ASPIRIN 325 MG TAB PO ONE (18:28)
[2024-07-03] MEDS: TICAGRELOR 90 MG TAB PO ONE (18:28)
[2024-07-03] MEDS: LIDOCAINE 1% INJ 10MG/ML (20 ML MDV) SQ ONE (18:30)
[2024-07-03] MEDS: fentaNYL (PF) 50 MCG/ML 2 ML AMP IVP ONE (18:35)
[2024-07-03] MEDS: HEPARIN SODIUM 1,000 UN/ML (10ML VL) IV ONE (18:40)
[2024-07-03] MEDS: NITROGLYCERIN 1000MCG/10ML SYRINGE INTRACORON ONE (19:07)
--- NOTE | 2024-07-03 19:21 | P.PCN ---
Date of Procedure: 07/03/24 Operative Findings: PERCUTANEOUS CORONARY INTERVENTION Performing physician Wally Clarke M.D. Procedure Performed: 1. Successful stenting of the ostial and proximal RCA using 4.0 x 33 mm Xience drug-eluting stent with an excellent angiographic results. 2. Adjunctive use of IVUS and lithotripsy balloon 3. Ultrasound-guided access of the right common femoral artery and selective right common femoral artery angiogram Indication: This is an 84-year-old female patient with known history of CAD and prior stenting of the RCA and LAD was admitted to the hospital with chest discomfort. She underwent dobutamine stress echocardiogram and that came to be abnormal with evidence of basal septal hypokinesia and also anterolateral hypokinesia. In the light of that a heart catheterization was advised Approach: Right common femoral artery Complications: None Level of Sedation: Moderate with a sedation length of 44 minutes Procedure Discussion: After obtaining informed consent the patient was brought to the cardiac [facility]. The right common femoral artery was cannulated using micropuncture t echnique under ultrasound guidance a micropuncture wire passed easily then I placed a 6 Turkmen 11 cm sheath at the right common femoral artery. After that I did start anticoagulation using heparin with continuous ACT monitoring. Initially attempting engaging the RCA using JR4 guiding catheter showed significant dampening in the waveform because of the ostial lesion which was quite eccentric. At that point I decided to change my guide to use a JR 3.5 sidehole guiding catheter. I did engage the RCA with that guide and then I did wired the RCA from the get go using 2 wires including a run-through wire and whisper wire to have a better anchoring of the guiding catheter. After that I did intravascular ultrasound which showed a diameter of the RCA around 4 mm with heavily calcified vessel by the ostial lesion and also the previous stent appeared to be not well expanded. I did balloon angioplasty initially using 3 mm noncompliant balloon and subsequently using 3.5 mm lithotripsy balloon. After that I deployed 4.0 x 33 mm stent where the stent was positioned under fluoroscopy guidance and deployed under fluoroscopy guidance. I flared the ostium using the stent balloon. Final angiogram showed excellent angiographic results and the procedure was completed with no complication Postprocedure Management: 1. Dual antiplatelet therapy using aspirin and Treanda for at least 6-month 2. Aggressive cholesterol control 3. Risk factors modification
[2024-07-03] MEDS: IOPAMIDOL-370 100ML BTL INJ ONE (19:23)
[2024-07-03] MEDS: SODIUM CHLORIDE 0.9% 1,000 ML IV ONE (19:25)
[2024-07-03] MEDS ORDERED: ZOLPIDEM 5 MG TAB PO PRN (19:26)
[2024-07-03] MEDS ORDERED: MAG HYDROX/AL HYDROX/SIMETH 30 ML CUP PO PRN (19:26)
[2024-07-03] MEDS ORDERED: NITROGLYCERIN SL TABS 0.4 MG TAB SUBLINGUAL PRN (19:26)
[2024-07-03] MEDS ORDERED: RX INFO: IV CONTRAST WAS GIVEN 1 EACH MISC MISCELLANE PRN (19:26)
[2024-07-03] MEDS ORDERED: ATROPINE SULFATE 0.1 MG/ML 10ML SYRINGE IV PRN (19:26)
[2024-07-03] MEDS: ATORVASTATIN 80 MG TAB PO STA (20:20)
[2024-07-03] MEDS: ASPIRIN 325 MG TAB PO STA (20:20)
[2024-07-03 22:36] LABS: Glucose,Whole Blood 131 mg/dL (70-110)
[2024-07-03 23:03] LABS: Glucose,Whole Blood 163 mg/dL (70-110)
[2024-07-03 23:23] LABS: Basophils # (A) 0.1 k/uL (0-0.2); Basophils % (A) 1 %; Eosinophils # (A) 0.1 k/uL (0-0.7); Eosinophils % (A) 1 %; HCT 39.2 % (34.0-46.0); HGB 12.7 gm/dL (11.4-16.0); Lymphocytes # (A) 2.2 k/uL (1.0-4.8); Lymphocytes % (A) 21 %; MCH 32.1 pg (25.0-35.0); MCHC 32.5 g/dL (31.0-37.0); MCV 98.9 fL (80.0-100.0); Mean Platelet Volume 6.7; Monocytes # (A) 0.4 k/uL (0-1.0); Monocytes % (A) 4 %; Neutrophils # (A) 7.3 k/uL (1.3-7.7); Neutrophils % (A) 71 %; Platelet Count 262 k/uL (150-450); RBC 3.96 m/uL (3.80-5.40); RDW 13.1 % (11.5-15.5); WBC 10.2 k/uL (3.8-10.6)
[2024-07-03] MEDS: AMIODARONE 360 MG in DEXTROSE 5% IN WATER 200 ML IV ONE (23:42)
[2024-07-03 23:52] LABS: ALT 178 U/L (4-34); AST 187 U/L (14-36); African American GFR (CKD) 88 (>60 ml/min/1.73 sqM); Albumin 3.9 g/dL (3.5-5.0); Alkaline Phosphatase 59 U/L (38-126); Anion Gap 4 mmol/L; Blood Urea Nitrogen 17 mg/dL (7-17); Calcium 8.5 mg/dL (8.4-10.2); Carbon Dioxide 26 mmol/L (22-30); Chloride 106 mmol/L (98-107); Glucose 168 mg/dL (74-99); Magnesium 2.2 mg/dL (1.6-2.3); Non-African American GFR(CKD) 76 (>60 ml/min/1.73 sqM); Potassium 3.4 mmol/L (3.5-5.1); Sodium 136 mmol/L (137-145); Total Protein 7.2 g/dL (6.3-8.2)
[2024-07-04] MEDS: ALPRAZolam 0.25 MG TAB PO PRN (00:17)
[2024-07-04] MEDS: DEXTROSE 5% IN WATER 100 ML with AMIODARONE 150 MG IV ONE (00:19)
--- NOTE | 2024-07-04 00:34 | XR ---
EXAM: XR Chest, 1 View CLINICAL HISTORY: ITS.REASON XR Reason: v. fib arrest s/p CPR TECHNIQUE: Frontal view of the chest. COMPARISON: No relevant prior studies available. FINDINGS: Lungs: Unremarkable. No consolidation. Pleural space: Unremarkable. No pneumothorax. Heart: Cardiomegaly. Mediastinum: Unremarkable. Normal mediastinal contour. Bones/joints: Unremarkable. No acute fracture. IMPRESSION: No acute findings in the chest.
--- NOTE | 2024-07-04 02:44 | P.CNPUL ---
History of Present Illness Consult date: 07/04/24 Requesting physician: Yuri Ramsey Reason for consult: other (V-fib cardiac arrest) Chief complaint: Witnessed cardiac arrest History of present illness: Patient is a 84-year-old female with past medical history significant for hypertension, hyperlipidemia, and coronary artery disease with previous PCI/stenting to the LAD. We are consulted last night after the patient had a witnessed V-fib cardiac arrest with limited downtime of approximately 3 minutes. Patient was shocked x 1 with 1 round of CPR, ROSC was achieved. Patient was then transferred to the intensive care unit. She did not require intubation. Patient's state that she was feeling lightheaded, and possible TIA like symptoms earlier in the week, she was evaluated by cardiology on an outpatient basis. Patient did undergo heart catheterization done at [facility], she was found to have significant disease of the RCA. Transferred to [facility] for intervention yesterday. She did undergo successful stenting of t the ostial and proximal RCA using a 4.0 x 33 mm Xience drug-eluting stent. She was sent to the cardiac stepdown unit for recovery. While on the unit she did have a witnessed V-fib cardiac arrest. This was captured on clinical axis. She received 1 round of CPR and was defibrillated with 120 J. ROSC was achieved. She did not require intubation. Does not require any vasopressor support. She was loaded with 300 mg of IV amiodarone, and started on amiodarone protocol. Cardiology recommended patient be transferred to the intensive care unit. I am evaluating this patient in room 256. She is alert and oriented. She is in no distress, but is a little anxious. Reports some mild chest discomfort with palpation. Denies any radiating chest pain, no nausea, no diaphoresis. No respiratory distress. On room air, SpO2 is 100%. Amiodarone is currently infusing at 1 mg/min. No further ectopy noted. Twelve-lead EKG does not show any suspicious new changes. Sinus mechanism with first-degree AV block, incomplete intraventricular contract edition delay, rate 70 bpm. There is a right femoral sheath. CBC: WBC count 10.2, hemoglobin of 12.7, hematocrit 39.2, platelets 262. CMP: Sodium 136, potassium 3.4, chloride 106, serum bicarb 26, BUN 17, creatinine 0.74, glucose 168. Magnesium 2.2. AST 187, ALT 178, ALP 59. Vital signs are stable. Review of Systems Constitutional: Denies chills, Denies fever, Denies sweats, Denies weight gain Ears, nose, mouth and throat: Denies headache Cardiovascular: Denies chest pain, Denies dyspnea on exertion, Denies leg edema, Denies orthopnea, Denies palpitations, Denies paroxysmal nocturnal dyspnea, Denies shortness of breath, Denies syncope Respiratory: Reports pain on inspiration, Denies congestion, Denies cough, Denies dyspnea, Denies hemoptysis, Denies respiratory infections, Denies wheezing Gastrointestinal: Denies abdominal pain, Denies constipation, Denies diarrhea, Denies nausea, Denies vomiting Genitourinary: Denies dysuria Musculoskeletal: Denies limitation of motion Integumentary: Denies rash Neurological: Denies change in mentation, Denies head injury, Denies headaches, Denies paresthesias, Denies seizures, Denies weakness, Denies visual changes Psychiatric: Reports anxiety, Denies depression Past Medical History Past Medical History: Hyperlipidemia, Hypertension, Myocardial Infarction (HI) Additional Past Medical History / Comment(s): bilateral breast CA 1995, arthritis. Last Myocardial Infarction Date:: 2019 History of Any Multi-Drug Resistant Organisms: None Reported Past Surgical History: Heart Catheterization, Heart Catheterization With Stent, Joint Replacement Additional Past Surgical History / Comment(s): Bilateral breast lumpectomy and lymph node resection. Right knee replacement stent X 3 LAD 05-19-20. stent RCA 07-03-24 Past Anesthesia/Blood Transfusion Reactions: No Reported Reaction Date of Last Stent Placement:: t Past Psychological History: No Psychological Hx Reported Smoking Status: Never smoker Past Alcohol Use History: Occasional Additional Past Alcohol Use History / Comment(s): Pt states she is a social drinker Past Drug Use History: None Reported - Past Family History Father Additional Family Medical History / Comment(s): Heart disease Mother Additional Family Medical History / Comment(s): Stomach cancer Medications and Allergies Home Medications Medication Instructions Recorded Confirmed Type Labetalol [Trandate] 100 mg PO BID 05/07/20 07/03/24 History Potassium Chloride [Potassium 10 meq PO DAILY 05/07/20 07/03/24 History Chloride ER] Aspirin 81 mg PO DAILY chew 05/09/20 07/03/24 Rx Nitroglycerin Sl Tabs [Nitrostat] 0.4 mg SUBLINGUAL Q5M PRN #100 tab 05/09/20 07/03/24 Rx Atorvastatin [Lipitor] 10 mg PO HS 07/03/24 07/03/24 History Clopidogrel [Plavix] 75 mg PO DAILY 07/03/24 07/03/24 History Metoprolol Tartrate [Lopressor] 12.5 mg PO BID 07/03/24 07/03/24 History Olmesartan [Benicar] 20 mg PO DAILY 07/03/24 07/03/24 History amLODIPine [Norvasc] 5 mg PO DAILY 07/03/24 07/03/24 History Allergies Allergy/AdvReac Type Severity Reaction Status Date / Time meperidine [From Demerol] Allergy Unknown Anaphylaxis Verified 07/03/24 19:51 morphine Allergy Unknown Anaphylaxis Verified 07/03/24 19:51 Physical Exam Vitals: Vital Signs Pulse Pulse Pulse Resp BP BP Pulse Ox 07/04/24 01:20 17 123/71 100 07/04/24 01:10 74 14 127/68 100 07/04/24 01:00 73 16 110/74 100 07/04/24 00:50 0 L 21 132/69 100 07/04/24 00:40 70 5 L 130/62 100 07/04/24 00:30 72 0 L 140/71 100 07/04/24 00:20 73 15 133/73 100 07/04/24 00:10 75 17 122/72 100 07/04/24 00:00 72 12 123/82 100 07/03/24 23:51 70 3 L 123/82 100 07/03/24 23:50 68 12 127/79 100 07/03/24 23:40 70 12 127/71 99 07/03/24 23:30 74 10 L 135/72 100 07/03/24 23:20 72 16 134/77 100 07/03/24 23:10 30 H 135/76 100 07/03/24 23:03 135/76 07/03/24 22:50 68 100 07/03/24 22:30 0 L 31 H 07/03/24 22:20 67 32 H 07/03/24 22:10 66 5 L 07/03/24 22:00 67 64 17 133/74 96 07/03/24 21:50 73 9 L 07/03/24 21:45 66 19 130/74 99 07/03/24 21:40 66 5 L 07/03/24 21:30 64 17 07/03/24 21:20 68 21 07/03/24 21:10 67 44 H 07/03/24 21:00 63 12 07/03/24 20:51 70 14 07/03/24 20:30 63 17 153/84 96 07/03/24 20:15 70 20 147/85 98 07/03/24 20:00 73 17 137/93 97 07/03/24 19:45 63 19 128/74 98 07/03/24 16:55 65 16 129/69 96 Intake and Output 07/03/24 07/03/24 07/04/24 14:59 22:59 06:59 Intake Total 840 300 Output Total 535 Balance 840 -235 Intake: IV 300 Intake, IV Titration 300 Amount Sodium Chloride 0.9% 1, 300 000 ml In Empty Bag 1 bag @ 75 mls/hr IV .[id number] [facility] Rx#:[id number] Oral 540 Output: Urine 535 Other: Voiding Method Bedpan Indwelling Catheter Weight 63 kg ABP, PAP, CO, CI - Last 8 Hours Arterial Blood Pressure 146/67 Arterial Blood Pressure 148/67 Arterial Blood Pressure 0/0 Arterial Blood Pressure 148/68 Arterial Blood Pressure 132/62 Arterial Blood Pressure 143/65 Arterial Blood Pressure 138/60 Arterial Blood Pressure 136/59 Arterial Blood Pressure 142/64 Arterial Blood Pressure 143/68 Arterial Blood Pressure 148/64 Arterial Blood Pressure 149/67 Arterial Blood Pressure 141/69 Arterial Blood Pressure 162/69 Arterial Blood Pressure 190/16 Arterial Blood Pressure 151/66 Arterial Blood Pressure 151/61 Arterial Blood Pressure 158/68 Arterial Blood Pressure 165/74 Arterial Blood Pressure 155/62 Arterial Blood Pressure 155/60 Arterial Blood Pressure 165/69 Arterial Blood Pressure 163/67 Arterial Blood Pressure 168/70 GENERAL EXAM: Alert, 84-year-old well-appearing female, comfortable in no apparent distress. HEAD: Normocephalic and atraumatic EYES: Normal reaction of pupils, equal size. NOSE: Clear with pink turbinates. THROAT: No erythema or exudates. NECK: No masses, no JVD. CHEST: No chest wall deformity. LUNGS: Equal air entry with no crackles, wheeze, rhonchi or dullness. On room air. No conversational dyspnea or accessory muscle use.. CVS: S1 and S2 normal with no audible murmur, regular rhythm. No extra heart sounds ABDOMEN: No hepatosplenomegaly, active bowel sounds, no guarding or rigidity. SPINE: No scoliosis or deformity SKIN: No rashes CENTRAL NERVOUS SYSTEM: No focal deficits, tone is normal in all 4 extremities. EXTREMITIES: There is no peripheral edema, clubbing, or cyanosis. Peripheral pulses are intact. Right femoral sheath without observable hematoma Results - Laboratory Findings CBC and BMP: 07/04/24 05:59 07/04/24 05:59 Abnormal lab findings: Abnormal Labs 07/03/24 07/03/24 07/03/24 22:34 23:02 23:13 Sodium 136 L Potassium 3.4 L Glucose 168 H POC Glucose (mg/dL) 131 H 163 H AST 187 H ALT 178 H Assessment and Plan Assessment: V-fib cardiac arrest, with a limited downtime of less than 3 minutes, patient did undergo 1 round of CPR and was defibrillated x 1 with 120 J, ROSC was achieved. Patient did not require intubation. She was loaded with 300 mg of amiodarone per cardiology recommendation, then started on amiodarone protocol at 1 mg/min. She is currently in intensive care unit. No further ectopy noted. Coronary artery disease, with previous history of stenting to LAD, more recent stent to the RCA done yesterday. No intraoperative complications reported. History of hyperlipidemia History of hypertension History of breast cancer status post lumpectomy Anxiety Plan: JOY WATSON called overhead at 2229 Patient was found to be in V-fib cardiac arrest, shock defibrillated with 120 J x 1. Downtime was brief, less than 3 minutes, patient did receive 1 round of CPR. ROSC was achieved.-Did not require intubation. Patient did receive a 300 mg amiodarone IV bolus, and is now on the amiodarone IV protocol at 1 mg/min. No notable new ischemic changes seen on twelve-lead EKG Obtain transthoracic echocardiogram On dual antiplatelet therapy with Brilinta and aspirin Cardiology has been updated, no further recommendations at this time We will continue to follow the patient while in the intensive care unit. I have personally seen and examined the patient, performed the documentation and the assessment and plan as written. Number of minutes spent on the visit:20 On 07/04/2024, the patient is being seen for joint evaluation along with the nurse practitioner. In summary, the patient is known to have coronary artery disease and the patient has had previous coronary stenting of the RCA and LAD. The patient presented to another hospital because of chest pain and the patient got transferred to us and a cardiac catheterization was done and the patient underwent a stenting of the ostium and proximal RCA. Overnight, the patient had a episode of V-fib cardiac arrest. She received CPR. She received defibrillation. She is back in normal sinus mechanism. She does have some confusion. She is moving all 4 extremities without any limitation. The patient is currently on IV amiodarone drip. Patient is also on IV heparin. The patient will be started on beta-blockers. Cardiogram is to be repeated. No further cardiac events overnight. The patient is currently hemodynamically stable. Cardiology is on the case and will keep the patient in ICU for further monitoring. The patient is currently on room air oxygen and her oxygenation is stable. This evaluation was done more than 30 minutes. Will continue aspirin and Brilinta. Time with Patient: Greater than 30
[2024-07-04 03:07] LABS: Basophils # (A) 0.1 k/uL (0-0.2); Basophils % (A) 1 %; Eosinophils # (A) 0.1 k/uL (0-0.7); Eosinophils % (A) 1 %; HCT 39.2 % (34.0-46.0); HGB 12.9 gm/dL (11.4-16.0); Lymphocytes # (A) 1.1 k/uL (1.0-4.8); Lymphocytes % (A) 9 %; MCH 32.3 pg (25.0-35.0); MCHC 32.8 g/dL (31.0-37.0); MCV 98.3 fL (80.0-100.0); Mean Platelet Volume 6.6; Monocytes # (A) 0.7 k/uL (0-1.0); Monocytes % (A) 6 %; Neutrophils % (A) 82 %; Platelet Count 261 k/uL (150-450); RBC 3.99 m/uL (3.80-5.40); RDW 13.5 % (11.5-15.5); WBC 12.2 k/uL (3.8-10.6)
[2024-07-04 04:24] LABS: ALT 190 U/L (4-34); AST 214 U/L (14-36); African American GFR (CKD) 86 (>60 ml/min/1.73 sqM); Albumin 4.1 g/dL (3.5-5.0); Alkaline Phosphatase 63 U/L (38-126); Anion Gap 8 mmol/L; Bilirubin, Delta 0.1 mg/dL (0.0-0.2); Bilirubin,Unconjugated 0.6 mg/dL (0.0-1.1); Blood Urea Nitrogen 18 mg/dL (7-17); Calcium 8.6 mg/dL (8.4-10.2); Carbon Dioxide 25 mmol/L (22-30); Chloride 104 mmol/L (98-107); Glucose 137 mg/dL (74-99); Non-African American GFR(CKD) 75 (>60 ml/min/1.73 sqM); Potassium 3.6 mmol/L (3.5-5.1); Sodium 137 mmol/L (137-145); Total Bilirubin 0.7 mg/dL (0.2-1.3); Total Protein 7.4 g/dL (6.3-8.2)
[2024-07-04] MEDS: ALPRAZolam 0.5 MG TAB PO PRN (04:50)
[2024-07-04] MEDS: AMIODARONE 450 MG in DEXTROSE 5% IN WATER 250 ML IV SCH (04:54)
[2024-07-04] MEDS ORDERED: Potassium Replacement Protocol 1 EACH MISC MISCELLANE PRN (05:10)
[2024-07-04] MEDS: POTASSIUM CHLORIDE ER 20 MEQ TAB.ER PO SCH (05:46)
[2024-07-04] MEDS: HEPARIN SOD,PORK IN 0.45% NACL 25,000 UNIT in 0.45% NACL 1 250ML.BAG IV SCH (05:52)
[2024-07-04 06:47] LABS: Basophils % (A) 0 %; Eosinophils % (A) 0 %; HCT 40.4 % (34.0-46.0); Lymphocytes % (A) 10 %; MCH 31.9 pg (25.0-35.0); MCHC 32.2 g/dL (31.0-37.0); MCV 99.1 fL (80.0-100.0); Mean Platelet Volume 6.7; Monocytes # (A) 0.5 k/uL (0-1.0); Monocytes % (A) 5 %; Neutrophils # (A) 8.6 k/uL (1.3-7.7); Neutrophils % (A) 83 %; Platelet Count 245 k/uL (150-450); RBC 4.08 m/uL (3.80-5.40); RDW 13.4 % (11.5-15.5); WBC 10.4 k/uL (3.8-10.6)
[2024-07-04] MEDS ORDERED: HEPARIN SODIUM,PORCINE (1 ML) 2,500 UNIT in SODIUM CHLORIDE 0.9% 250 ML IRRIGATION PRN (07:00)
[2024-07-04] MEDS ORDERED: HEPARIN SODIUM,PORCINE 10,000 UNIT in SODIUM CHLORIDE 0.9% 1,000 ML IRRIGATION PRN (07:00)
[2024-07-04 07:06] LABS: Prothrombin Time 10.8 sec (10.0-12.5)
[2024-07-04 07:07] LABS: African American GFR (CKD) >90 (>60 ml/min/1.73 sqM); Non-African American GFR(CKD) 81 (>60 ml/min/1.73 sqM)
[2024-07-04] MEDS: TICAGRELOR 90 MG TAB PO SCH (08:32)
[2024-07-04] MEDS: ASPIRIN 81 MG PO SCH (08:32)
--- NOTE | 2024-07-04 11:16 | P.PN ---
Subjective Progress Note Date: 07/04/24 PROGRESS NOTE The patient is an 84-year-old female with a known history of CAD, status post stenting of the RCA and LAD in 2019 who presented to [facility] with chest pain and no evidence of acute coronary syndrome, underwent a dobutamine stress echo that was abnormal and subsequently was transferred after cardiac catheterization that showed significant RCA lesion. She underwent stenting of the ostium and proximal RCA by Dr. Clarke using a 4.0 x 33 mm stent. Last night she had a ventricular fibrillation arrest requiring cardioversion x 1. She is in sinus mechanism with no further arrhythmia. She is mildly confused. She denies any change in her breathing. She has musculoskeletal chest discomfort at the site of CPR. Her blood pressure is stable. Her urinary output is stable. Medications: Aspirin, Brilinta 90 mg twice a day, Lipitor 80 mg daily, IV heparin, IV amiodarone. PHYSICAL EXAMINATION: Blood pressure 118/50 heart rate 60, mildly confused LUNGS: Clear to auscultation HEART: Regular rate and rhythm, S1, S2. No S3. Systolic ejection murmur, chest wall discomfort reproducing the pain by palpation ABDOMEN: Soft, nontender, no organomegaly EXTREMETIES: No edema, right groin no hematoma, right radial pulse intact LAB: EKG sinus mechanism with no ST segment elevation. Potassium 3.6, BUN 18, creatinine 0.75, hemoglobin 12.9 IMPRESSION: 1. Status post stenting of the RCA 2. Ventricular fibrillation arrest, etiology unclear, no evidence to suggest stent closure 3. History of LAD stent, patent 4. Hyperlipidemia PLAN: 1. Stop IV heparin 2. Switch to oral amiodarone 3. Add low-dose beta-rigoberto 4. Repeat echocardiogram 5. Depending on her progress further recommendations will be made Objective - Vital Signs Vital signs: Vital Signs Temp 96.6 F L 07/04/24 08:00 Pulse 60 07/04/24 09:00 Resp 10 L 07/04/24 09:00 BP 118/52 07/04/24 09:00 Pulse Ox 100 07/04/24 09:00 FiO2 Intake & Output 07/03/24 07/04/24 07/04/24 18:59 06:59 18:59 Intake Total 300 690 200 Output Total 915 400 Balance 300 -225 -200 Weight 63 kg 80.8 kg Intake: IV 300 Intake, IV Titration 150 Amount Sodium Chloride 0.9% 1, 150 000 ml In Empty Bag 1 bag @ 75 mls/hr IV .[id number] [facility] Rx#:[id number] Oral 540 200 Output: Urine 915 400 Other: Voiding Method Indwelling Catheter Indwelling Catheter ABP, PAP, CO, CI - Last Documented Arterial Blood Pressure 146/67 - Labs CBC & Chem 7: 07/04/24 05:59 07/04/24 05:59 Labs: Abnormal Lab Results - Last 24 Hours (Table) 07/03/24 07/03/24 07/03/24 Range/Units 22:34 23:02 23:13 WBC (3.8-10.6) k/uL Neutrophils # (1.3-7.7) k/uL Sodium 136 L (137-145) mmol/L Potassium 3.4 L (3.5-5.1) mmol/L BUN (7-17) mg/dL Glucose 168 H (74-99) mg/dL POC Glucose (mg/dL) 131 H 163 H (70-110) mg/dL AST 187 H (14-36) U/L ALT 178 H (4-34) U/L Troponin I (0.000-0.034) ng/mL 07/04/24 07/04/24 07/04/24 Range/Units 02:52 02:52 02:52 WBC 12.2 H (3.8-10.6) k/uL Neutrophils # 10.0 H (1.3-7.7) k/uL Sodium (137-145) mmol/L Potassium (3.5-5.1) mmol/L BUN 18 H (7-17) mg/dL Glucose 137 H (74-99) mg/dL POC Glucose (mg/dL) (70-110) mg/dL AST 214 H (14-36) U/L ALT 190 H (4-34) U/L Troponin I 0.219 H* (0.000-0.034) ng/mL 07/04/24 Range/Units 05:59 WBC (3.8-10.6) k/uL Neutrophils # 8.6 H (1.3-7.7) k/uL Sodium (137-145) mmol/L Potassium (3.5-5.1) mmol/L BUN (7-17) mg/dL Glucose (74-99) mg/dL POC Glucose (mg/dL) (70-110) mg/dL AST (14-36) U/L ALT (4-34) U/L Troponin I (0.000-0.034) ng/mL
[2024-07-04] MEDS: AMIODARONE 200 MG TAB PO SCH (12:12)
[2024-07-04] MEDS: METOPROLOL TARTRATE 12.5 MG TAB PO SCH (12:13)
--- NOTE | 2024-07-04 12:26 | P.HPIM ---
History of Present Illness This is a pleasant 84 years old female with past medical history of coronary artery disease, hypertension, hyperlipidemia She was transferred from [facility] for positive stress test. She underwent cardiac cath with Dr. Fischer, she is status post PCI to of the ostium and proximal RCA Patient complicated hospital course by cardiac arrest secondary to ventricular fibrillation. She was resuscitated per protocol. Currently she was seen in the ICU. Fully awake oriented, complaining only from mild chest pain in the center. Eating her meal with good appetite. Denies any abdominal pain, no vomiting, no abdominal tenderness. She denies constipation. No urinary complaint, has Healy catheter in good urine output 100 mL/h Heparin drip was discontinued, amiodarone drip was discontinued switch to oral amiodarone She is afebrile Labs unremarkable. Troponin slightly elevated 0.2 Chest x-ray is negative for acute process. Review of Systems Review of systems CONSTITUTIONAL: No fever, no malaise, no fatigue. HEENT: No recent visual problems or hearing problems. Denied any sore throat. CARDIOVASCULAR: No orthopnea, PND, no palpitations, no syncope. PULMONARY: No shortness of breath, no cough, no hemoptysis. GASTROINTESTINAL: No diarrhea, no nausea, no vomiting, no abdominal pain. Nor moactive bowel sounds. NEUROLOGICAL: No headaches, no weakness, no numbness. HEMATOLOGICAL: Denies any bleeding or petechiae. GENITOURINARY: Denies any burning micturition, frequency, or urgency. MUSCULOSKELETAL/RHEUMATOLOGICAL: Denies any joint pain, swelling, or any muscle pain. ENDOCRINE: Denies any polyuria or polydipsia. Past Medical History Past Medical History: Hyperlipidemia, Hypertension, Myocardial Infarction (ID) Additional Past Medical History / Comment(s): bilateral breast CA 1995, arthritis. Last Myocardial Infarction Date:: 2019 History of Any Multi-Drug Resistant Organisms: None Reported Past Surgical History: Heart Catheterization, Heart Catheterization With Stent, Joint Replacement Additional Past Surgical History / Comment(s): Bilateral breast lumpectomy and lymph node resection. Right knee replacement stent X 3 LAD 05-19-20. 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 Past Drug Use History: None Reported - Past Family History Father Additional Family Medical History / Comment(s): Heart disease Mother Additional Family Medical History / Comment(s): Stomach cancer Medications and Allergies Home Medications Medication Instructions Recorded Confirmed Type Labetalol [Trandate] 100 mg PO BID 05/07/20 07/03/24 History Potassium Chloride [Potassium 10 meq PO DAILY 05/07/20 07/03/24 History Chloride ER] Aspirin 81 mg PO DAILY chew 05/09/20 07/03/24 Rx Nitroglycerin Sl Tabs [Nitrostat] 0.4 mg SUBLINGUAL Q5M PRN #100 tab 05/09/20 07/03/24 Rx Atorvastatin [Lipitor] 10 mg PO HS 07/03/24 07/03/24 History Clopidogrel [Plavix] 75 mg PO DAILY 07/03/24 07/03/24 History Metoprolol Tartrate [Lopressor] 12.5 mg PO BID 07/03/24 07/03/24 History Olmesartan [Benicar] 20 mg PO DAILY 07/03/24 07/03/24 History amLODIPine [Norvasc] 5 mg PO DAILY 07/03/24 07/03/24 History Allergies Allergy/AdvReac Type Severity Reaction Status Date / Time meperidine [From Demerol] Allergy Unknown Anaphylaxis Verified 07/03/24 19:51 morphine Allergy Unknown Anaphylaxis Verified 07/03/24 19:51 Physical Exam Vitals: Vital Signs Temp Pulse Pulse Pulse Resp BP BP 07/04/24 07:00 24 135/106 07/04/24 06:30 76 13 119/81 07/04/24 06:00 72 12 127/62 07/04/24 05:30 69 15 136/68 07/04/24 05:00 70 16 112/77 07/04/24 04:30 29 H 125/66 07/04/24 04:00 98.3 F 21 129/58 07/04/24 03:30 73 17 116/83 07/04/24 03:00 67 15 122/77 07/04/24 02:30 70 15 137/56 07/04/24 02:00 72 5 L 132/76 07/04/24 01:30 66 7 L 123/71 07/04/24 01:20 17 123/71 07/04/24 01:10 74 14 127/68 07/04/24 01:00 73 16 110/74 07/04/24 00:50 0 L 21 132/69 07/04/24 00:40 70 5 L 130/62 07/04/24 00:30 72 0 L 140/71 07/04/24 00:20 73 15 133/73 07/04/24 00:10 75 17 122/72 07/04/24 00:00 72 12 123/82 07/03/24 23:51 70 3 L 123/82 07/03/24 23:50 68 12 127/79 07/03/24 23:40 70 12 127/71 07/03/24 23:30 74 10 L 135/72 07/03/24 23:20 72 16 134/77 07/03/24 23:10 30 H 135/76 07/03/24 23:03 135/76 07/03/24 22:50 68 07/03/24 22:30 0 L 31 H 07/03/24 22:20 67 32 H 07/03/24 22:10 66 5 L 07/03/24 22:00 67 64 17 133/74 07/03/24 21:50 73 9 L 07/03/24 21:45 66 19 130/74 07/03/24 21:40 66 5 L 07/03/24 21:30 64 17 07/03/24 21:20 68 21 07/03/24 21:10 67 44 H 07/03/24 21:00 63 12 07/03/24 20:51 70 14 07/03/24 20:30 63 17 153/84 07/03/24 20:15 70 20 147/85 07/03/24 20:00 73 17 137/93 07/03/24 19:45 63 19 128/74 07/03/24 16:55 65 16 129/69 Pulse Ox 07/04/24 07:00 100 07/04/24 06:30 99 07/04/24 06:00 100 07/04/24 05:30 100 07/04/24 05:00 100 07/04/24 04:30 100 07/04/24 04:00 100 07/04/24 03:30 100 07/04/24 03:00 100 07/04/24 02:30 100 07/04/24 02:00 100 07/04/24 01:30 100 07/04/24 01:20 100 07/04/24 01:10 100 07/04/24 01:00 100 07/04/24 00:50 100 07/04/24 00:40 100 07/04/24 00:30 100 07/04/24 00:20 100 07/04/24 00:10 100 07/04/24 00:00 100 07/03/24 23:51 100 07/03/24 23:50 100 07/03/24 23:40 99 07/03/24 23:30 100 07/03/24 23:20 100 07/03/24 23:10 100 07/03/24 23:03 07/03/24 22:50 100 07/03/24 22:30 07/03/24 22:20 07/03/24 22:10 07/03/24 22:00 96 07/03/24 21:50 07/03/24 21:45 99 07/03/24 21:40 07/03/24 21:30 07/03/24 21:20 07/03/24 21:10 07/03/24 21:00 07/03/24 20:51 07/03/24 20:30 96 07/03/24 20:15 98 07/03/24 20:00 97 07/03/24 19:45 98 07/03/24 16:55 96 Intake and Output 07/03/24 07/04/24 07/04/24 22:59 06:59 14:59 Intake Total 840 150 Output Total 915 175 Balance 840 -765 -175 Intake: IV 300 Intake, IV Titration 150 Amount Sodium Chloride 0.9% 1, 150 000 ml In Empty Bag 1 bag @ 75 mls/hr IV .[id number] [facility] Rx#:[id number] Oral 540 Output: Urine 915 175 Other: Voiding Method Bedpan Indwelling Catheter Weight 63 kg 80.8 kg ABP, PAP, CO, CI - Last 8 Hours Arterial Blood Pressure 146/67 Arterial Blood Pressure 148/67 Arterial Blood Pressure 0/0 Arterial Blood Pressure 148/68 Arterial Blood Pressure 132/62 GENERAL: The patient is alert and oriented x3, not in any acute distress. Well developed, well nourished. HEENT: Pupils are round and equally reacting to light. EOMI. No scleral icterus. No conjunctival pallor. Normocephalic, atraumatic. No pharyngeal erythema. No thyromegaly. CARDIOVASCULAR: S1 and S2 present. No murmurs, rubs, or gallops. PULMONARY: Chest is clear to auscultation, no wheezing , no crackles. ABDOMEN: Soft, nontender, nondistended, normoactive bowel sounds. No palpable organomegaly. MUSCULOSKELETAL: No joint swelling or deformity. EXTREMITIES: No cyanosis, clubbing, or pedal edema. NEUROLOGICAL: Gross neurological examination did not reveal any focal deficits. SKIN: No rashes. no petechiae. Results CBC & Chem 7: 07/04/24 05:59 07/04/24 05:59 Labs: Abnormal Lab Results - Last 24 Hours (Table) 07/03/24 07/03/24 07/03/24 Range/Units 22:34 23:02 23:13 WBC (3.8-10.6) k/uL Neutrophils # (1.3-7.7) k/uL Sodium 136 L (137-145) mmol/L Potassium 3.4 L (3.5-5.1) mmol/L BUN (7-17) mg/dL Glucose 168 H (74-99) mg/dL POC Glucose (mg/dL) 131 H 163 H (70-110) mg/dL AST 187 H (14-36) U/L ALT 178 H (4-34) U/L Troponin I (0.000-0.034) ng/mL 07/04/24 07/04/24 07/04/24 Range/Units 02:52 02:52 02:52 WBC 12.2 H (3.8-10.6) k/uL Neutrophils # 10.0 H (1.3-7.7) k/uL Sodium (137-145) mmol/L Potassium (3.5-5.1) mmol/L BUN 18 H (7-17) mg/dL Glucose 137 H (74-99) mg/dL POC Glucose (mg/dL) (70-110) mg/dL AST 214 H (14-36) U/L ALT 190 H (4-34) U/L Troponin I 0.219 H* (0.000-0.034) ng/mL 07/04/24 Range/Units 05:59 WBC (3.8-10.6) k/uL Neutrophils # 8.6 H (1.3-7.7) k/uL Sodium (137-145) mmol/L Potassium (3.5-5.1) mmol/L BUN (7-17) mg/dL Glucose (74-99) mg/dL POC Glucose (mg/dL) (70-110) mg/dL AST (14-36) U/L ALT (4-34) U/L Troponin I (0.000-0.034) ng/mL Thrombosis Risk Factor Assmnt - Choose All That Apply Any of the Below Risk Factors Present?: No Other Risk Factors: Yes Each Risk Factor Represents 3 Points: Age 75 years or older Thrombosis Risk Factor Assessment Total Risk Factor Score: 3 Thrombosis Risk Factor Assessment Level: Moderate Risk Assessment and Plan Assessment: Chest pain with positive stress test, s/p cardiac cath and PCI of the ostium and proximal RCA Ventricular fibrillation and cardiac arrest s/p resuscitation. Currently kept on amiodarone Hypertension Hyperlipidemia Coronary artery disease Plan: Continue with dual antiplatelet therapy Continue with the current cardiac medication including amiodarone, metoprolol Statin Cardiology and critical care team consult GI and DVT prophylaxis
[2024-07-04] MEDS: ATORVASTATIN 80 MG TAB PO SCH (20:53)
[2024-07-04] MEDS ORDERED: AMIODARONE 200 MG TAB PO SCH (21:00)
[2024-07-04] MEDS: NITROGLYCERIN SL TABS 0.4 MG TAB SUBLINGUAL PRN (22:47)
[2024-07-05 04:51] LABS: African American GFR (CKD) 76 (>60 ml/min/1.73 sqM); Anion Gap 10 mmol/L; Blood Urea Nitrogen 20 mg/dL (7-17); Calcium 8.6 mg/dL (8.4-10.2); Carbon Dioxide 22 mmol/L (22-30); Chloride 105 mmol/L (98-107); Glucose 168 mg/dL (74-99); Non-African American GFR(CKD) 66 (>60 ml/min/1.73 sqM); Potassium 3.2 mmol/L (3.5-5.1); Sodium 137 mmol/L (137-145)
[2024-07-05] MEDS: POTASSIUM CHLORIDE ER 20 MEQ TAB.ER PO SCH ×2 (06:15→11:27)
[2024-07-05] MEDS: ACETAMINOPHEN TAB 325 MG TAB PO PRN (07:41)
[2024-07-05] MEDS ORDERED: bisacodyL 5 MG TABLET.DR PO PRN (08:20)
[2024-07-05] MEDS ORDERED: Potassium Replacement Protocol 1 EACH MISC MISCELLANE PRN (08:34)
--- NOTE | 2024-07-05 08:40 | P.PN ---
Subjective This is a pleasant 84 years old female with past medical history of coronary artery disease, hypertension, hyperlipidemia She was transferred from [facility] for positive stress test. She underwent cardiac cath with Dr. Fischer, she is status post PCI to of the ostium and proximal RCA Patient complicated hospital course by cardiac arrest secondary to ventricular fibrillation. She was resuscitated per protocol. Currently she was seen in the ICU. Fully awake oriented, complaining only from mild chest pain in the center. Eating her meal with good appetite. Denies any abdominal pain, no vomiting, no abdominal tenderness. She denies constipation. No urinary complaint, has Healy catheter in good urine output 100 mL/h Heparin drip was discontinued, amiodarone drip was discontinued switch to oral amiodarone She is afebrile Labs unremarkable. Troponin slightly elevated 0.2 Chest x-ray is negative for acute process. 07/05 Patient overall is doing well, she has mild chest pain most likely related to her CPR No other new complaint, patient feels fine and she wants to go home. She is complaining from constipation Colace is ordered Patient instructed about dual antiplatelet therapy with aspirin and Brilinta. Patient instructed for close outpatient follow-up and she agrees Vitals and labs reviewed and stable, mildly low potassium replaced. Possible discharge soon Objective - Vital Signs Vital signs: Vital Signs Temp 97.6 F 07/05/24 08:00 Pulse 70 07/05/24 08:00 Resp 13 07/05/24 08:00 BP 146/54 07/05/24 08:00 Pulse Ox 98 07/05/24 08:00 FiO2 Intake & Output 07/04/24 07/05/24 07/05/24 18:59 06:59 18:59 Intake Total 678.336 470 100 Output Total 960 815 0 Balance -281.664 -345 100 Weight 80.8 kg Intake: Intake, IV Titration 128.336 Amount Amiodarone 450 mg In 128.336 Dextrose 5% in Water 250 ml @ 0.5 MG/MIN 16.667 mls/hr IV .Q15H [facility] Rx#: [id number] Oral 550 470 100 Output: Urine 960 815 0 Other: Voiding Method Indwelling Catheter Indwelling Catheter Indwelling Catheter # Voids 0 ABP, PAP, CO, CI - Last Documented Arterial Blood Pressure 146/67 - Exam GENERAL: The patient is alert and oriented x3, not in any acute distress. Well developed, well nourished. HEENT: Pupils are round and equally reacting to light. EOMI. No scleral icterus. No conjunctival pallor. Normocephalic, atraumatic. No pharyngeal erythema. No thyromegaly. CARDIOVASCULAR: S1 and S2 present. No murmurs, rubs, or gallops. PULMONARY: Chest is clear to auscultation, no wheezing , no crackles. ABDOMEN: Soft, nontender, nondistended, normoactive bowel sounds. No palpable organomegaly. MUSCULOSKELETAL: No joint swelling or deformity. EXTREMITIES: No cyanosis, clubbing, or pedal edema. NEUROLOGICAL: Gross neurological examination did not reveal any focal deficits. SKIN: No rashes. no petechiae. - Labs CBC & Chem 7: 07/04/24 05:59 07/05/24 03:52 Labs: Abnormal Lab Results - Last 24 Hours (Table) 07/05/24 Range/Units 03:52 Potassium 3.2 L (3.5-5.1) mmol/L BUN 20 H (7-17) mg/dL Glucose 168 H (74-99) mg/dL
[2024-07-05] MEDS: FAMOTIDINE 20 MG/2 ML VIAL IV SCH (08:52)
[2024-07-05] MEDS: DOCUSATE 100 MG CAP PO SCH (08:52)
[2024-07-05 09:30] LABS: HCT 38.6 % (34.0-46.0); HGB 12.9 gm/dL (11.4-16.0); MCH 33.2 pg (25.0-35.0); MCHC 33.5 g/dL (31.0-37.0); MCV 99.2 fL (80.0-100.0); Mean Platelet Volume 6.5; Platelet Count 241 k/uL (150-450); RBC 3.89 m/uL (3.80-5.40); RDW 13.1 % (11.5-15.5); WBC 12.1 k/uL (3.8-10.6)
--- NOTE | 2024-07-05 09:56 | P.PN ---
Subjective Progress Note Date: 07/05/24 PROGRESS NOTE The patient is an 84-year-old female with a known history of CAD, status post stenting of the RCA and LAD in 2019 who presented to [facility] with chest pain and no evidence of acute coronary syndrome, underwent a dobutamine stress echo that was abnormal and subsequently was transferred after cardiac catheterization that showed significant RCA lesion. She underwent stenting of the ostium and proximal RCA by Dr. Clarke using a 4.0 x 33 mm stent. Last night she had a ventricular fibrillation arrest requiring cardioversion x 1. She is in sinus mechanism with no further arrhythmia. She is mildly confused. She denies any change in her breathing. She has musculoskeletal chest discomfort at the site of CPR. Her blood pressure is stable. Her urinary output is stable. July 05: The patient is feeling well this morning, she denies any chest discomfort except mild reproducible pain on the left side. She continues to be in sinus mechanism with no further episodes of ventricular tachyarrhythmia. She is off IV heparin and IV amiodarone. She denies any nausea or vomiting. She has been ambulating in the room without difficulties. She is more alert and oriented this morning. She is on no vasopressors. Medications: Aspirin, Brilinta 90 mg twice a day, Lipitor 80 mg daily, amiodarone 200 mg twice daily, metoprolol 12.5 mg twice a day. PHYSICAL EXAMINATION: Blood pressure 133/60 heart rate 70 LUNGS: Clear to auscultation HEART: Regular rate and rhythm, S1, S2. No S3. Systolic ejection murmur, chest wall discomfort reproducing the pain by palpation ABDOMEN: Soft, nontender, no organomegaly EXTREMETIES: No edema, LAB: Hemoglobin 12.9, WBC 12.1. Potassium 3.8. BUN 20, creatinine 0.83. Magnesium 2.2. IMPRESSION: 1. Status post stenting of the RCA 2. Ventricular fibrillation arrest, etiology unclear, no evidence to suggest stent closure, stable 3. History of LAD stent, patent 4. Hyperlipidemia PLAN: 1. Increase beta-rigoberto 2. Transfer to telemetry 3. Obtain an echocardiogram with Doppler 4. Increase physical activity 6. If stable probable discharge home tomorrow Objective - Vital Signs Vital signs: Vital Signs Temp 97.6 F 07/05/24 08:00 Pulse 71 07/05/24 09:00 Resp 25 H 07/05/24 09:00 BP 133/65 07/05/24 09:00 Pulse Ox 98 07/05/24 09:00 FiO2 Intake & Output 07/04/24 07/05/24 07/05/24 18:59 06:59 18:59 Intake Total 678.336 470 100 Output Total 960 815 250 Balance -281.664 -345 -150 Weight 80.8 kg Intake: Intake, IV Titration 128.336 Amount Amiodarone 450 mg In 128.336 Dextrose 5% in Water 250 ml @ 0.5 MG/MIN 16.667 mls/hr IV .Q15H [facility] Rx#: [id number] Oral 550 470 100 Output: Urine 960 815 250 Other: Voiding Method Indwelling Catheter Indwelling Catheter Indwelling Catheter # Voids 0 1 # Bowel Movements 1 ABP, PAP, CO, CI - Last Documented Arterial Blood Pressure 146/67 - Labs CBC & Chem 7: 07/05/24 09:01 07/05/24 09:01 Labs: Abnormal Lab Results - Last 24 Hours (Table) 07/05/24 07/05/24 Range/Units 03:52 09:01 WBC 12.1 H (3.8-10.6) k/uL Potassium 3.2 L (3.5-5.1) mmol/L BUN 20 H (7-17) mg/dL Glucose 168 H (74-99) mg/dL
[2024-07-05] MEDS: METOPROLOL TARTRATE 25 MG TAB PO SCH (11:24)
--- NOTE | 2024-07-05 11:55 | CA ---
Transthoracic Echo Report Name: Chuck Duenas Age: 84 Gender: F : 1940 Exam Date: 07/05/2024 07:39 Exam Location: [place] [facility] Ht (in): 60 Wt (lb): 178 Ordering Physician: Glynn Aceves MD ([id number]) Attending/Referring Phys: [employer] Attorney Georgina Fink RDCS Procedure CPT: Indications: CAD Cardiac Hx: Technical Quality: Fair Contrast 1: Total Dose (mL): Contrast 2: Total Dose (mL): MEASUREMENTS (Male / Female) Normal Values 2D ECHO LV Diastolic Diameter PLAX 5.4 cm 4.2 - 5.9 / 3.9 - 5.3 cm LV Systolic Diameter PLAX 3.4 cm IVS Diastolic Thickness 1.1 cm 0.6 - 1.0 / 0.6 - 0.9 cm LVPW Diastolic Thickness 1.1 cm 0.6 - 1.0 / 0.6 - 0.9 cm LV Relative Wall Thickness 0.4 LVOT Diameter 2.0 cm LV Diastolic Volume MOD BP 99.0 cm??? 67 - 155 / 56 - 104 cm??? LV Systolic Volume MOD BP 34.8 cm??? 22 - 58 / 19 - 49 cm??? LV Ejection Fraction MOD BP 64.9 % >= 55 % LV Cardiac Index MOD BP 2552.9 cm???/min???m??? LV Diastolic Volume MOD 4C 99.3 cm??? LV Systolic Volume MOD 4C 34.9 cm??? LV Ejection Fraction MOD 4C 64.9 % LV Cardiac Index MOD 4C 2557.8 cm???/min???m??? LV Diastolic Length 4C 6.9 cm LV Systolic Length 4C 6.0 cm LV Diastolic Volume MOD 2C 97.6 cm??? LV Systolic Volume MOD 2C 32.8 cm??? LV Ejection Fraction MOD 2C 66.4 % LV Cardiac Index MOD 2C 2575.3 cm???/min???m??? LV Diastolic Length 2C 6.8 cm LV Systolic Length 2C 5.7 cm LA Volume 45.2 cm??? 18 - 58 / 22 - 52 cm??? LA Volume Index 24.0 cm???/m??? 16 - 28 cm???/m??? Ascending Aorta Diameter 4.1 cm DOPPLER AV Peak Velocity 119.8 cm/s AV Peak Gradient 5.7 mmHg AV Mean Velocity 89.1 cm/s AV Mean Gradient 3.5 mmHg AV Velocity Time Integral 24.2 cm MV Peak Velocity 114.2 cm/s MV Peak Gradient 5.2 mmHg MV Mean Velocity 62.3 cm/s MV Mean Gradient 1.8 mmHg MV Velocity Time Integral 20.4 cm MV Area PHT 8.1 cm??? Mitral E Point Velocity 31.0 cm/s Mitral A Point Velocity 88.1 cm/s Mitral E to A Ratio 0.4 MV Deceleration Time 93.2 ms TR Peak Velocity 278.1 cm/s TR Peak Gradient 30.9 mmHg Right Atrial Pressure 5.0 mmHg Pulmonary Artery Systolic Pressu 35.9 mmHg Right Ventricular Systolic Press 35.9 mmHg PV Peak Velocity 98.0 cm/s PV Peak Gradient 3.8 mmHg FINDINGS Left Ventricle Left ventricular ejection fraction is estimated at 55-60 %. Midly increased left ventricular diastolic diameter. No obvious regional wall motion abnormalities.Mildly increased left ventricular wall thickness. Right Ventricle Normal right ventricular size and function. Mild pulmonary hypertension. Right Atrium Normal right atrial size. Left Atrium Normal left atrial size. Mitral Valve Structurally normal mitral valve. No evidence for mitral valve prolapse. No mitral stenosis. Mild mitral regurgitation. Aortic Valve Trileaflet aortic valve. Aortic valve sclerosis. No aortic stenosis. Mild aortic regurgitation. Tricuspid Valve Structurally normal tricuspid valve. No tricuspid stenosis. Mild tricuspid regurgitation. Pulmonic Valve Pulmonic valve not well visualized. No pulmonic stenosis. Trace pulmonic regurgitation. Pericardium No pericardial effusion. Aorta Aortic annulus normal. Mildly dilated proximal ascending aorta (tube). CONCLUSIONS 1. Normal left ventricular size and systolic function 2. Mild mitral, aortic and tricuspid regurgitation Previewed by: Dr. Glynn Aceves MD (Electronically Signed) Final Date: 05 July 2024 11:54
[2024-07-05 12:16] VITALS: BMI 34.7
[2024-07-05] MEDS: SODIUM CHLORIDE 0.65% NASAL SPRAY 44 ML BTL NASAL PRN (13:43)
--- NOTE | 2024-07-05 14:06 | P.PN ---
Subjective Progress Note Date: 07/05/24 Patient is a 84-year-old female with past medical history significant for hypertension, hyperlipidemia, and coronary artery disease with previous PCI/stenting to the LAD. We are consulted last night after the patient had a witnessed V-fib cardiac arrest with limited downtime of approximately 3 minutes. Patient was shocked x 1 with 1 round of CPR, ROSC was achieved. Patient was then transferred to the intensive care unit. She did not require intubation. Patient's state that she was feeling lightheaded, and possible TIA like symptoms earlier in the week, she was evaluated by cardiology on an outpatient basis. Patient did undergo heart catheterization done at [facility], she was found to have significant disease of the RCA. Transferred to [facility] for intervention yesterday. She did undergo successful stenting of t the ostial and proximal RCA using a 4.0 x 33 mm Xience drug-eluting stent. She was sent to the cardiac stepdown unit for recovery. While on the unit she did have a witnessed V-fib cardiac arrest. This was captured on clinical axis. She received 1 round of CPR and was defibrillated with 120 J. ROSC was achieved. She did not require intubation. Does not require any vasopressor support. She was loaded with 300 mg of IV amiodarone, and started on amiodarone protocol. Cardiology recommended patient be transferred to the intensive care unit. I am evaluating this patient in room 256. She is alert and oriented. She is in no distress, but is a little anxious. Reports some mild chest discomfort with palpation. Denies any radiating chest pain, no nausea, no diaphoresis. No respiratory distress. On room air, SpO2 is 100%. Amiodarone is currently infusing at 1 mg/min. No further ectopy noted. Twelve-lead EKG does not show any suspicious new changes. Sinus mechanism with first-degree AV block, incomplete intraventricular contract edition delay, rate 70 bpm. There is a right femoral sheath. CBC: WBC count 10.2, hemoglobin of 12.7, hematocrit 39.2, platelets 262. CMP: Sodium 136, potassium 3.4, chloride 106, serum bicarb 26, BUN 17, creatinine 0.74, glucose 168. Magnesium 2.2. AST 187, ALT 178, ALP 59. Vital signs are stable. On 07/05/2024, the patient is awake and alert and communicating. No cardiac arrhythmias have been noted. The patient has been switched to oral amiodarone 200 mg p.o. twice a day and the patient was also given metoprolol 25 mg twice a day. She remains on aspirin and Brilinta. EKG showing a first-degree AV block with frequent atrial premature beats. The white cell count is 12 with a hemoglobin 12.9 and platelet count of 241. Electrolytes are all stable with a BUN of 20 and a creatinine of 0.8. The patient has no specific complaints. No signs of any encephalopathy. No neurological deficits and she is moving all 4 extremities without any limitation. Objective - Vital Signs Vital signs: Vital Signs Temp 97.6 F 07/05/24 08:00 Pulse 71 07/05/24 09:00 Resp 25 H 07/05/24 09:00 BP 133/65 07/05/24 09:00 Pulse Ox 98 07/05/24 09:00 FiO2 Intake & Output 07/04/24 07/05/24 07/05/24 18:59 06:59 18:59 Intake Total 678.336 470 100 Output Total 960 815 250 Balance -281.664 -345 -150 Weight 80.8 kg Intake: Intake, IV Titration 128.336 Amount Amiodarone 450 mg In 128.336 Dextrose 5% in Water 250 ml @ 0.5 MG/MIN 16.667 mls/hr IV .Q15H [facility] Rx#: [id number] Oral 550 470 100 Output: Urine 960 815 250 Other: Voiding Method Indwelling Catheter Indwelling Catheter Indwelling Catheter # Voids 0 1 # Bowel Movements 1 ABP, PAP, CO, CI - Last Documented Arterial Blood Pressure 146/67 - Exam GENERAL EXAM: Alert, 84-year-old well-appearing female, comfortable in no apparent distress. HEAD: Normocephalic and atraumatic EYES: Normal reaction of pupils, equal size. NOSE: Clear with pink turbinates. THROAT: No erythema or exudates. NECK: No masses, no JVD. CHEST: No chest wall deformity. LUNGS: Equal air entry with no crackles, wheeze, rhonchi or dullness. On room air. No conversational dyspnea or accessory muscle use.. CVS: S1 and S2 normal with no audible murmur, regular rhythm. No extra heart sounds ABDOMEN: No hepatosplenomegaly, active bowel sounds, no guarding or rigidity. SPINE: No scoliosis or deformity SKIN: No rashes CENTRAL NERVOUS SYSTEM: No focal deficits, tone is normal in all 4 extremities. EXTREMITIES: There is no peripheral edema, clubbing, or cyanosis. Peripheral pulses are intact. Right femoral sheath without observable hematoma - Labs CBC & Chem 7: 07/05/24 09:01 07/05/24 09:01 Labs: Abnormal Lab Results - Last 24 Hours (Table) 07/05/24 07/05/24 Range/Units 03:52 09:01 WBC 12.1 H (3.8-10.6) k/uL Potassium 3.2 L (3.5-5.1) mmol/L BUN 20 H (7-17) mg/dL Glucose 168 H (74-99) mg/dL Assessment and Plan Assessment: V-fib cardiac arrest, with a limited downtime of less than 3 minutes, patient did undergo 1 round of CPR and was defibrillated x 1 with 120 J, ROSC was achieved. Patient did not require intubation. Coronary artery disease, with previous history of stenting to LAD, more recent stent to the RCA done on 07/03/2024. No intraoperative complications reported. History of hyperlipidemia History of hypertension History of breast cancer status post lumpectomy Anxiety Plan: Continue aspirin and Brilinta Continue amiodarone 2 mg p.o. twice a day Continue metoprolol 25 mg twice a day Patient is free of any chest pain IV heparin has been discontinued No signs of encephalopathy Neurologically intact Free of any chest pain Echocardiogram was also completed this morning and the patient has a normal LV function, no significant valvular abnormalities Can be transferred out of the intensive care unit.
[2024-07-06 04:18] LABS: HCT 40.2 % (34.0-46.0); HGB 13.1 gm/dL (11.4-16.0); MCH 32.1 pg (25.0-35.0); MCHC 32.5 g/dL (31.0-37.0); MCV 98.6 fL (80.0-100.0); Platelet Count 254 k/uL (150-450); RBC 4.08 m/uL (3.80-5.40); RDW 13.7 % (11.5-15.5)
[2024-07-06 04:35] LABS: African American GFR (CKD) >90 (>60 ml/min/1.73 sqM); Anion Gap 6 mmol/L; Blood Urea Nitrogen 18 mg/dL (7-17); Calcium 8.8 mg/dL (8.4-10.2); Carbon Dioxide 21 mmol/L (22-30); Chloride 110 mmol/L (98-107); Glucose 106 mg/dL (74-99); Non-African American GFR(CKD) 81 (>60 ml/min/1.73 sqM); Sodium 137 mmol/L (137-145)
[2024-07-06 08:36] VITALS: BP 124/59; PULSE 78; RESP 20; TEMP 96.6
--- NOTE | 2024-07-06 09:07 | P.PN ---
Subjective Progress Note Date: 07/06/24 PROGRESS NOTE The patient is an 84-year-old female with a known history of CAD, status post stenting of the RCA and LAD in 2019 who presented to [facility] with chest pain and no evidence of acute coronary syndrome, underwent a dobutamine stress echo that was abnormal and subsequently was transferred after cardiac catheterization that showed significant RCA lesion. She underwent stenting of the ostium and proximal RCA by Dr. Clarke using a 4.0 x 33 mm stent. Last night she had a ventricular fibrillation arrest requiring cardioversion x 1. She is in sinus mechanism with no further arrhythmia. She is mildly confused. She denies any change in her breathing. She has musculoskeletal chest discomfort at the site of CPR. Her blood pressure is stable. Her urinary output is stable. July 05: The patient is feeling well this morning, she denies any chest discomfort except mild reproducible pain on the left side. She continues to be in sinus mechanism with no further episodes of ventricular tachyarrhythmia. She is off IV heparin and IV amiodarone. She denies any nausea or vomiting. She has been ambulating in the room without difficulties. She is more alert and oriented this morning. She is on no vasopressors. July 06: Patient feels well this morning, continues to be in sinus mechanism. She has musculoskeletal left-sided chest discomfort. She has no further episode of ventricular fibrillation or any arrhythmia. She denies any nausea or vomiting. She is feeling stronger. Her echo showed a preserved systolic function with mild mitral, aortic and tricuspid regurgitation. Medications: Aspirin, Brilinta 90 mg twice a day, Lipitor 80 mg daily, amiodarone 200 mg twice daily, metoprolol 25 mg twice a day. PHYSICAL EXAMINATION: Blood pressure 124/60 heart rate 78. LUNGS: Clear to auscultation HEART: Regular rate and rhythm, S1, S2. No S3. Systolic ejection murmur, chest wall discomfort reproducing the pain by palpation ABDOMEN: Soft, nontender, no organomegaly EXTREMETIES: No edema, LAB: Hemoglobin 13.1, WBC 10. Potassium 4.0.. BUN 18 , creatinine 0.7 IMPRESSION: 1. Status post stenting of the RCA 2. Ventricular fibrillation arrest, etiology unclear, no evidence to suggest stent closure, stable, no recurrence 3. History of LAD stent, patent 4. Hyperlipidemia PLAN: 1. Increase physical activity 2. If stable discharge home today 3. Follow-up with Dr. Osman as an outpatient Objective - Vital Signs Vital signs: Vital Signs Temp 96.6 F L 07/06/24 08:00 Pulse 78 07/06/24 08:00 Resp 20 07/06/24 08:00 BP 124/59 07/06/24 08:00 Pulse Ox 98 07/06/24 08:00 FiO2 Intake & Output 07/05/24 07/06/24 07/06/24 18:59 06:59 18:59 Intake Total 600 Output Total 800 400 Balance -200 -400 Weight 80.8 kg 82.5 kg Intake: Oral 600 Output: Urine 800 400 Other: Voiding Method Toilet Toilet Toilet # Voids 1 1 # Bowel Movements 1 ABP, PAP, CO, CI - Last Documented Arterial Blood Pressure 146/67 - Labs CBC & Chem 7: 07/06/24 03:45 07/06/24 03:45 Labs: Abnormal Lab Results - Last 24 Hours (Table) 07/05/24 07/06/24 Range/Units 09:01 03:45 WBC 12.1 H (3.8-10.6) k/uL Chloride 110 H (98-107) mmol/L Carbon Dioxide 21 L (22-30) mmol/L BUN 18 H (7-17) mg/dL Glucose 106 H (74-99) mg/dL
--- NOTE | 2024-07-06 13:51 | P.PN ---
Subjective Progress Note Date: 07/06/24 Patient is a 84-year-old female with past medical history significant for hypertension, hyperlipidemia, and coronary artery disease with previous PCI/stenting to the LAD. We are consulted last night after the patient had a witnessed V-fib cardiac arrest with limited downtime of approximately 3 minutes. Patient was shocked x 1 with 1 round of CPR, ROSC was achieved. Patient was then transferred to the intensive care unit. She did not require intubation. Patient's state that she was feeling lightheaded, and possible TIA like symptoms earlier in the week, she was evaluated by cardiology on an outpatient basis. Patient did undergo heart catheterization done at [facility], she was found to have significant disease of the RCA. Transferred to [facility] for intervention yesterday. She did undergo successful stenting of t the ostial and proximal RCA using a 4.0 x 33 mm Xience drug-eluting stent. She was sent to the cardiac stepdown unit for recovery. While on the unit she did have a witnessed V-fib cardiac arrest. This was captured on clinical axis. She received 1 round of CPR and was defibrillated with 120 J. ROSC was achieved. She did not require intubation. Does not require any vasopressor support. She was loaded with 300 mg of IV amiodarone, and started on amiodarone protocol. Cardiology recommended patient be transferred to the intensive care unit. I am evaluating this patient in room 256. She is alert and oriented. She is in no distress, but is a little anxious. Reports some mild chest discomfort with palpation. Denies any radiating chest pain, no nausea, no diaphoresis. No respiratory distress. On room air, SpO2 is 100%. Amiodarone is currently infusing at 1 mg/min. No further ectopy noted. Twelve-lead EKG does not show any suspicious new changes. Sinus mechanism with first-degree AV block, incomplete intraventricular contract edition delay, rate 70 bpm. There is a right femoral sheath. CBC: WBC count 10.2, hemoglobin of 12.7, hematocrit 39.2, platelets 262. CMP: Sodium 136, potassium 3.4, chloride 106, serum bicarb 26, BUN 17, creatinine 0.74, glucose 168. Magnesium 2.2. AST 187, ALT 178, ALP 59. Vital signs are stable. On 07/05/2024, the patient is awake and alert and communicating. No cardiac arrhythmias have been noted. The patient has been switched to oral amiodarone 200 mg p.o. twice a day and the patient was also given metoprolol 25 mg twice a day. She remains on aspirin and Brilinta. EKG showing a first-degree AV block with frequent atrial premature beats. The white cell count is 12 with a hemoglobin 12.9 and platelet count of 241. Electrolytes are all stable with a BUN of 20 and a creatinine of 0.8. The patient has no specific complaints. No signs of any encephalopathy. No neurological deficits and she is moving all 4 extremities without any limitation. On 07/06/2024, the patient has no complaints. Awake alert and communicating. No chest pain. No cardiac arrhythmias. No respiratory distress. Afebrile. Stable blood pressure. Pulse ox 98% room air oxygen. Remains on a combination of aspirin and Brilinta. Remains on metoprolol 25 mg p.o. twice a day and remains on amiodarone 10 mg p.o. twice a day. Patient has no complaints. Labs from today are all stable. Hemoglobin is 13, BUN is 18 with a creatinine of 0.7 and a potassium level is at 4.0. Objective - Vital Signs Vital signs: Vital Signs Temp 96.6 F L 07/06/24 08:00 Pulse 78 07/06/24 08:00 Resp 20 07/06/24 08:00 BP 124/59 07/06/24 08:00 Pulse Ox 98 07/06/24 08:00 FiO2 Intake & Output 07/05/24 07/06/24 07/06/24 18:59 06:59 18:59 Intake Total 600 Output Total 800 400 Balance -200 -400 Weight 80.8 kg 82.5 kg Intake: Oral 600 Output: Urine 800 400 Other: Voiding Method Toilet Toilet Toilet # Voids 1 1 # Bowel Movements 1 ABP, PAP, CO, CI - Last Documented Arterial Blood Pressure 146/67 - Exam GENERAL EXAM: Alert, 84-year-old well-appearing female, comfortable in no apparent distress. HEAD: Normocephalic and atraumatic EYES: Normal reaction of pupils, equal size. NOSE: Clear with pink turbinates. THROAT: No erythema or exudates. NECK: No masses, no JVD. CHEST: No chest wall deformity. LUNGS: Equal air entry with no crackles, wheeze, rhonchi or dullness. On room air. No conversational dyspnea or accessory muscle use.. CVS: S1 and S2 normal with no audible murmur, regular rhythm. No extra heart sounds ABDOMEN: No hepatosplenomegaly, active bowel sounds, no guarding or rigidity. SPINE: No scoliosis or deformity SKIN: No rashes CENTRAL NERVOUS SYSTEM: No focal deficits, tone is normal in all 4 extremities. EXTREMITIES: There is no peripheral edema, clubbing, or cyanosis. Peripheral pulses are intact. Right femoral sheath without observable hematoma - Labs CBC & Chem 7: 07/06/24 03:45 07/06/24 03:45 Labs: Abnormal Lab Results - Last 24 Hours (Table) 07/06/24 Range/Units 03:45 Chloride 110 H (98-107) mmol/L Carbon Dioxide 21 L (22-30) mmol/L BUN 18 H (7-17) mg/dL Glucose 106 H (74-99) mg/dL Assessment and Plan Assessment: V-fib cardiac arrest, with a limited downtime of less than 3 minutes, patient did undergo 1 round of CPR and was defibrillated x 1 with 120 J, ROSC was achieved. Patient did not require intubation. Coronary artery disease, with previous history of stenting to LAD, more recent stent to the RCA done on 07/03/2024. No intraoperative complications reported. History of hyperlipidemia History of hypertension History of breast cancer status post lumpectomy Anxiety Plan: Clinically unchanged and the patient is awake and alert and hemodynamically stable. No encephalopathy. Continue aspirin and Brilinta Continue amiodarone 200 mg p.o. twice a day Continue metoprolol 25 mg twice a day Patient is free of any chest pain IV heparin has been discontinued No signs of encephalopathy Neurologically intact Free of any chest pain Echocardiogram was also completed this morning and the patient has a normal LV function, no significant valvular abnormalities Discharge home today.
== END 2024-07-06 13:30 | disposition home or self-care (01) | DRG 323 ==
LOC: 3SCARD 16:42 → 2SICU 22:57
PROVIDERS: ADMIT Internal Medicine; ATTEND Internal Medicine
PROC: B240ZZ3 Ultrasonography of Single Coronary Artery, Intravascular (ICD-10-PCS; 2024-07-03)
PROC: B41F1ZZ Fluoroscopy of Right Lower Extremity Arteries using Low Osmolar Contrast (ICD-10-PCS; 2024-07-03)
PROC: 027034Z Dilation of Coronary Artery, One Artery with Drug-eluting Intraluminal Device, Percutaneous Approach (ICD-10-PCS; principal; 2024-07-03 14:44)
PROC: 02F03ZZ Fragmentation in Coronary Artery, One Artery, Percutaneous Approach (ICD-10-PCS; 2024-07-03 14:44)
PROC: 5A12012 Performance of Cardiac Output, Single, Manual (ICD-10-PCS; 2024-07-04)
PROC: 3E033RZ Introduction of Antiarrhythmic into Peripheral Vein, Percutaneous Approach (ICD-10-PCS; 2024-07-04)
PROC: 5A2204Z Restoration of Cardiac Rhythm, Single (ICD-10-PCS; 2024-07-04)
DX: I25.119 Atherosclerotic heart disease of native coronary artery with unspecified angina pectoris (principal); I46.2 Cardiac arrest due to underlying cardiac condition; I49.01 Ventricular fibrillation; I10 Essential (primary) hypertension; E78.5 Hyperlipidemia, unspecified; I44.0 Atrioventricular block, first degree; Z96.651 Presence of right artificial knee joint; K59.00 Constipation, unspecified; F41.9 Anxiety disorder, unspecified; I49.1 Atrial premature depolarization; Z95.5 Presence of coronary angioplasty implant and graft; I25.2 Old myocardial infarction; Z85.3 Personal history of malignant neoplasm of breast; Z88.5 Allergy status to narcotic agent; Z79.82 Long term (current) use of aspirin; Z79.02 Long term (current) use of antithrombotics/antiplatelets
CPT/HCPCS: 71045; 80048; 80053; 80076; 82565; 83735; 84132; 84484; 85025; 85027; 85347; 85610; 85730; 92972; 92978; 93306